=== PATIENT | female | born 1945 ===

== ENCOUNTER 2018-04-02 13:06 | Inpatient (IN) ==
[2018-04-02] MEDS ORDERED: Propofol 1000 mg/100 ml Inj 1,000 MG/100 ML BOTTLE ONE (13:26)
--- NOTE | 2018-04-02 13:44 | XR ---
EXAM DATE: 04/02/2018 1:37 PM EST AGE/SEX: 89 years / Female INDICATIONS: Shortness of breath. CLINICAL DATA: This is the patient's initial encounter. Patient reports that signs and symptoms have been present for 1 day and indicates a pain score of Nonresponsive. MEDICAL/SURGICAL HISTORY: Non-responsive. Non-responsive. COMPARISON: No prior exams available for comparison. FINDINGS: A single AP view of the chest demonstrates minimal bibasilar linear densities without evidence of mas s, infiltrate or effusion. Endotracheal tube approximately 7 cm above the jitendra. The cardiomediasti nal contours are unremarkable. Osseous structures are intact. CONCLUSION: 1. Minimal bibasilar subsegmental atelectasis. 2. Endotracheal tube 7 cm above the jitendra. Electronically signed by: Ralph Montemayor MD 04/02/2018 1:42 PM EST
--- NOTE | 2018-04-02 13:48 | ED ---
HPI General Chief complaint: Respiratory Symptoms Stated complaint: Emergent Time Seen by Provider: 04/02/18 13:11 Source: EMS Mode of arrival: EMS Limitations: other History of Present Illness HPI narrative: Elderly female was brought in by [facility]AC s/p intubation in the field. Pt has COPD and was having difficulty breathing. Pt was from [place] but was adamant in wanting to come here. Wheezing bilaterally and given methylprednisolone and duonebs. They tried CPAP en route but pt was getting more tired so pt was intubated in the field. Unable to obtain any further history. Related Data Home Medications Medication Instructions Recorded Confirmed amiodarone 20 mg/kg PO DAILY 04/02/18 04/02/18 diazepam 5 mg PO BID 04/02/18 04/02/18 diltiazem HCl [Cartia XT] 240 mg PO DAILY 04/02/18 04/02/18 fluoxetine 40 mg PO DAILY 04/02/18 04/02/18 metoprolol tartrate 25 mg PO BID 04/02/18 04/02/18 trazodone 150 mg PO DAILY 04/02/18 04/02/18 Allergies Allergy/AdvReac Type Severity Reaction Status Date / Time No Known Allergies Allergy Verified 04/02/18 13:11 Review of Systems ROS: all other systems reviewed are negative [facility] Medical History Medical History Anxiety (Acute) Asthma (Acute) COPD (chronic obstructive pulmonary disease) (Acute) HBP (high blood pressure) (Acute) History of hysterectomy (Acute) Surgical History Surgical History History of cholecystectomy (Acute) History of hip replacement (Acute) Hx of eye surgery (Acute) Social History Social History Substance History: No History of Abuse Second Hand Smoke Exposure: No Smoking Status: Former smoker Tobacco Type: Cigarettes How Often Do You Have a Drink Containing Alcohol: Never Recent Travel in [facility] within the Last 8 Weeks: No Recent Out of Country Travel within the Last 8 Weeks: No Exam Narrative Exam Narrative: GENERAL: Elderly female sedated with versed and etomidate. SKIN: Focused skin assessment warm/dry. HEAD: Atraumatic. Normocephalic. EYES: Pupils equal and round. No scleral icterus. No injection or drainage. ENT: No nasal bleeding or discharge. Mucous membranes pink and moist. NECK: Trachea midline. No JVD. CARDIOVASCULAR: Regular rate and rhythm. No murmur appreciated. RESPIRATORY: Wheezing bilaterally. GASTROINTESTINAL: Abdomen soft, non-tender, nondistended. Hepatic and splenic margins not palpable. MUSCULOSKELETAL: No obvious deformities. No clubbing. No cyanosis. No edema. NEUROLOGICAL: Sedated but [facility]AC said pt was moving all extremities. Course Initial Documented Vital Signs Temperature 102.1 F H 04/02/18 13:12 Pulse Rate 76 04/02/18 13:12 Respiratory Rate 16 04/02/18 13:12 Blood Pressure 127/80 04/02/18 13:12 Pulse Oximetry 98 04/02/18 13:12 Last Documented Vital Signs Temperature 98.3 F 04/03/18 12:00 Pulse Rate 59 L 04/03/18 13:00 Respiratory Rate 11 L 04/03/18 13:00 Blood Pressure 132/60 04/03/18 13:00 Pulse Oximetry 99 04/03/18 16:07 Critical Care Time Critical Care Time: Yes Total Critical Care Time: 40 Attestation: Aggregate critical care time was 40 minutes. Time to perform other separately billable procedures was not included in the critical care time. My time did not include minutes spent treating any other patients simultaneously or on activities that did not directly contribute to the patient's treatment. The services I provided to this patient were to treat and/or prevent clinically significant deterioration that could result in: cardiovascular collapse or . I provided critical care services requiring my management, as noted below: Chart data review, documentation time, medication orders and management, vital sign assessments/reviewing monitor data, ordering and reviewing lab tests, ordering and interpreting/reviewing x-rays and diagnostic studies, care of the patient and discussion of the patient with the admitting physicians. Medical Decision Making MDM Narrative Medical decision making narrative: Elderly female brought here s/p intubation by [facility] for COPD exacerbation. Pt is febrile here so given acetaminophen rectal. Wheezing bilaterally so given more albuterol neb. Pt is placed on propofol drip for sedation. Labs reviewed, WBC 11.2. H/H low at 8.7/28.0. Lactic acid normal. Troponin negative. BNP mildly elevated at 298. UA negative. CXR showed minimal bibasilar atelectasis. ET tube 7cm above jitendra. Discussed with Dr. Ewing, pt had remote history of PE so requested to order CTA to r/o PE. Accepted to Dr. Ewing's service. Medical Screen Exam Complete: Yes Emergency Medical Condition: Yes Differential Diagnosis Differential Diagnosis: COPD exacerbation vs. pneumonia Lab Data Result diagrams: 04/03/18 05:30 04/03/18 05:30 Lab Results 04/02/18 04/02/18 04/02/18 Range/Units 14:00 14:00 14:00 WBC 11.2 H (4.0-11.0) th/mm3 RBC 3.16 L (4.00-5.30) mil/mm3 Hgb 8.7 L (11.6-15.3) gm/dL Hct 28.0 L (35.0-46.0) % MCV 88.6 (80.0-100.0) fL MCH 27.5 (27.0-34.0) pg MCHC 31.1 L (32.0-36.0) % RDW 19.1 H (11.6-17.2) % Plt Count 250 (150-450) th/mm3 MPV 9.9 (7.0-11.0) fL Prelim Diff (Auto) Neut % (Auto) 79.1 H (16.0-70.0) % Lymph % (Auto) 13.8 (9.0-44.0) % Upton % (Auto) 6.7 (0.0-8.0) % Eos % (Auto) 0.2 (0.0-4.0) % Baso % (Auto) 0.2 (0.0-2.0) % Neut # (Auto) 8.8 H (1.8-7.7) th/mm3 Lymph # (Auto) 1.5 (1.0-4.8) th/mm3 Upton # (Auto) 0.8 (0.0-0.9) th/mm3 Eos # (Auto) 0.0 (0.0-0.4) th/mm3 Baso # (Auto) 0.0 (0.0-0.2) th/mm3 WBC Differential . Seg Neuts % (Manual) (16-70) % Band Neuts % (Manual) (0-6) % Lymphocytes % (Manual) (9-44) % Monocytes % (Manual) (0-8) % Basophils % (Manual) (0-2) % Abs Neuts (Manual) (1.8-7.7) th/mm3 Differential Comment Auto diff final Platelet Estimate (Normal) Platelet Morphology (Normal) Ovalocytes (None) PT 11.2 (9.8-11.6) sec INR 1.1 Ratio APTT 27.1 (23.4-31.7) sec Puncture Site Patient Temperature O2 Saturation (90-100) % ABG pH (7.380-7.420) ABG pCO2 (38-42) mmHg ABG pO2 (61-120) mmHg ABG HCO3 (22-26) mmol/L ABG O2 Content (12.0-20.0) Vol % ABG Base Excess (-2-2) mmol/L ABG Methemoglobin (0-2) % Cooper Test Hemoglobin (12.0-16.0) G/DL Carboxyhemoglobin (0-4) % O2 Delivery Device Vent Setting Inspired O2 % Critical Value Sodium 142 (136-145) meq/L Potassium 4.1 (3.5-5.1) meq/L Chloride 98 (98-107) meq/L Carbon Dioxide 38.2 H (21.0-32.0) meq/L Anion Gap 6 (5-15) meq/L BUN 13 (7-18) mg/dL Creatinine 0.54 (0.50-1.00) mg/dL Estimated GFR Greater than 89 (>89) mL/min POC Glucose (68-110) mg/dl Random Glucose 160 H (74-106) mg/dL Lactic Acid (0.4-2.0) mmol/L Calcium 8.3 L (8.5-10.1) mg/dL Phosphorus (2.5-4.9) mg/dL Magnesium 2.1 (1.5-2.5) mg/dL Total Bilirubin 0.3 (0.2-1.0) mg/dL AST 22 (15-37) U/L ALT 25 (10-53) U/L Alkaline Phosphatase 103 (45-117) U/L Troponin I Less than 0.02 L (0.02-0.05) ng/mL B-Natriuretic Peptide (0-100) pg/mL Total Protein 7.0 (6.4-8.2) g/dL Albumin 3.1 L (3.4-5.0) g/dL Urine Color (Yellw/Straw) Urine Clarity (Clear) Urine pH (5.0-8.5) Ur Specific Hendricks (1.002-1.035) Urine Protein (Neg-Trace) mg/dL Urine Glucose (UA) (Negative) mg/dL Urine Ketones (Negative) mg/dL Urine Occult Blood (Negative) Urine Nitrate (Negative) Urine Bilirubin (Negative) Urine Urobilinogen (Less than 2) mg/dL Ur Leukocyte Esterase (Negative) Urine RBC (0-3) /hpf Urine WBC (0-5) /hpf Urine Bacteria (None) /hpf Hyaline Casts (0-3) /lpf Urine Mucus (Occasional) /lpf Micro UA Comment Ur Microscopic Review Urine Culture Comments Nasal Screen MRSA (PCR) (Negative) 04/02/18 04/02/18 04/02/18 Range/Units 14:00 14:00 14:04 WBC (4.0-11.0) th/mm3 RBC (4.00-5.30) mil/mm3 Hgb (11.6-15.3) gm/dL Hct (35.0-46.0) % MCV (80.0-100.0) fL MCH (27.0-34.0) pg MCHC (32.0-36.0) % RDW (11.6-17.2) % Plt Count (150-450) th/mm3 MPV (7.0-11.0) fL Prelim Diff (Auto) Neut % (Auto) (16.0-70.0) % Lymph % (Auto) (9.0-44.0) % Upton % (Auto) (0.0-8.0) % Eos % (Auto) (0.0-4.0) % Baso % (Auto) (0.0-2.0) % Neut # (Auto) (1.8-7.7) th/mm3 Lymph # (Auto) (1.0-4.8) th/mm3 Upton # (Auto) (0.0-0.9) th/mm3 Eos # (Auto) (0.0-0.4) th/mm3 Baso # (Auto) (0.0-0.2) th/mm3 WBC Differential Seg Neuts % (Manual) (16-70) % Band Neuts % (Manual) (0-6) % Lymphocytes % (Manual) (9-44) % Monocytes % (Manual) (0-8) % Basophils % (Manual) (0-2) % Abs Neuts (Manual) (1.8-7.7) th/mm3 Differential Comment Platelet Estimate (Normal) Platelet Morphology (Normal) Ovalocytes (None) PT (9.8-11.6) sec INR Ratio APTT (23.4-31.7) sec Puncture Site Right radial Patient Temperature 98.6 O2 Saturation 97 (90-100) % ABG pH 7.35 L (7.380-7.420) ABG pCO2 68 H* (38-42) mmHg ABG pO2 196 H (61-120) mmHg ABG HCO3 36 H (22-26) mmol/L ABG O2 Content 12.0 (12.0-20.0) Vol % ABG Base Excess 10.2 H (-2-2) mmol/L ABG Methemoglobin 0.8 (0-2) % Cooper Test Present Hemoglobin 8.4 L (12.0-16.0) G/DL Carboxyhemoglobin 1.3 (0-4) % O2 Delivery Device Ventilator Vent Setting Inspired O2 80 % Critical Value Yes Sodium (136-145) meq/L Potassium (3.5-5.1) meq/L Chloride (98-107) meq/L Carbon Dioxide (21.0-32.0) meq/L Anion Gap (5-15) meq/L BUN (7-18) mg/dL Creatinine (0.50-1.00) mg/dL Estimated GFR (>89) mL/min POC Glucose (68-110) mg/dl Random Glucose (74-106) mg/dL Lactic Acid 1.2 (0.4-2.0) mmol/L Calcium (8.5-10.1) mg/dL Phosphorus (2.5-4.9) mg/dL Magnesium (1.5-2.5) mg/dL Total Bilirubin (0.2-1.0) mg/dL AST (15-37) U/L ALT (10-53) U/L Alkaline Phosphatase (45-117) U/L Troponin I (0.02-0.05) ng/mL B-Natriuretic Peptide 298 H (0-100) pg/mL Total Protein (6.4-8.2) g/dL Albumin (3.4-5.0) g/dL Urine Color (Yellw/Straw) Urine Clarity (Clear) Urine pH (5.0-8.5) Ur Specific Hendricks (1.002-1.035) Urine Protein (Neg-Trace) mg/dL Urine Glucose (UA) (Negative) mg/dL Urine Ketones (Negative) mg/dL Urine Occult Blood (Negative) Urine Nitrate (Negative) Urine Bilirubin (Negative) Urine Urobilinogen (Less than 2) mg/dL Ur Leukocyte Esterase (Negative) Urine RBC (0-3) /hpf Urine WBC (0-5) /hpf Urine Bacteria (None) /hpf Hyaline Casts (0-3) /lpf Urine Mucus (Occasional) /lpf Micro UA Comment Ur Microscopic Review Urine Culture Comments Nasal Screen MRSA (PCR) (Negative) 04/02/18 04/02/18 04/02/18 Range/Units 14:20 16:03 17:10 WBC (4.0-11.0) th/mm3 RBC (4.00-5.30) mil/mm3 Hgb (11.6-15.3) gm/dL Hct (35.0-46.0) % MCV (80.0-100.0) fL MCH (27.0-34.0) pg MCHC (32.0-36.0) % RDW (11.6-17.2) % Plt Count (150-450) th/mm3 MPV (7.0-11.0) fL Prelim Diff (Auto) Neut % (Auto) (16.0-70.0) % Lymph % (Auto) (9.0-44.0) % Upton % (Auto) (0.0-8.0) % Eos % (Auto) (0.0-4.0) % Baso % (Auto) (0.0-2.0) % Neut # (Auto) (1.8-7.7) th/mm3 Lymph # (Auto) (1.0-4.8) th/mm3 Upton # (Auto) (0.0-0.9) th/mm3 Eos # (Auto) (0.0-0.4) th/mm3 Baso # (Auto) (0.0-0.2) th/mm3 WBC Differential Seg Neuts % (Manual) (16-70) % Band Neuts % (Manual) (0-6) % Lymphocytes % (Manual) (9-44) % Monocytes % (Manual) (0-8) % Basophils % (Manual) (0-2) % Abs Neuts (Manual) (1.8-7.7) th/mm3 Differential Comment Platelet Estimate (Normal) Platelet Morphology (Normal) Ovalocytes (None) PT (9.8-11.6) sec INR Ratio APTT (23.4-31.7) sec Puncture Site Patient Temperature O2 Saturation (90-100) % ABG pH (7.380-7.420) ABG pCO2 (38-42) mmHg ABG pO2 (61-120) mmHg ABG HCO3 (22-26) mmol/L ABG O2 Content (12.0-20.0) Vol % ABG Base Excess (-2-2) mmol/L ABG Methemoglobin (0-2) % Cooper Test Hemoglobin (12.0-16.0) G/DL Carboxyhemoglobin (0-4) % O2 Delivery Device Vent Setting Inspired O2 % Critical Value Sodium (136-145) meq/L Potassium (3.5-5.1) meq/L Chloride (98-107) meq/L Carbon Dioxide (21.0-32.0) meq/L Anion Gap (5-15) meq/L BUN (7-18) mg/dL Creatinine (0.50-1.00) mg/dL Estimated GFR (>89) mL/min POC Glucose 176 H (68-110) mg/dl Random Glucose (74-106) mg/dL Lactic Acid (0.4-2.0) mmol/L Calcium (8.5-10.1) mg/dL Phosphorus (2.5-4.9) mg/dL Magnesium (1.5-2.5) mg/dL Total Bilirubin (0.2-1.0) mg/dL AST (15-37) U/L ALT (10-53) U/L Alkaline Phosphatase (45-117) U/L Troponin I (0.02-0.05) ng/mL B-Natriuretic Peptide (0-100) pg/mL Total Protein (6.4-8.2) g/dL Albumin (3.4-5.0) g/dL Urine Color Yellow (Yellw/Straw) Urine Clarity Hazy H (Clear) Urine pH 6.0 (5.0-8.5) Ur Specific Hendricks 1.019 (1.002-1.035) Urine Protein 100 H (Neg-Trace) mg/dL Urine Glucose (UA) Negative (Negative) mg/dL Urine Ketones 20 (Negative) mg/dL Urine Occult Blood Negative (Negative) Urine Nitrate Negative (Negative) Urine Bilirubin Negative (Negative) Urine Urobilinogen Less than 2 (Less than 2) mg/dL Ur Leukocyte Esterase Negative (Negative) Urine RBC 3 (0-3) /hpf Urine WBC 1 (0-5) /hpf Urine Bacteria Rare H (None) /hpf Hyaline Casts 3 (0-3) /lpf Urine Mucus Few H (Occasional) /lpf Micro UA Comment Culture not ind Ur Microscopic Review Not Reportable Urine Culture Comments Culture not ind Nasal Screen MRSA (PCR) Not detected (Negative) 04/02/18 04/02/18 04/03/18 Range/Units 20:11 23:43 03:49 WBC (4.0-11.0) th/mm3 RBC (4.00-5.30) mil/mm3 Hgb (11.6-15.3) gm/dL Hct (35.0-46.0) % MCV (80.0-100.0) fL MCH (27.0-34.0) pg MCHC (32.0-36.0) % RDW (11.6-17.2) % Plt Count (150-450) th/mm3 MPV (7.0-11.0) fL Prelim Diff (Auto) Neut % (Auto) (16.0-70.0) % Lymph % (Auto) (9.0-44.0) % Upton % (Auto) (0.0-8.0) % Eos % (Auto) (0.0-4.0) % Baso % (Auto) (0.0-2.0) % Neut # (Auto) (1.8-7.7) th/mm3 Lymph # (Auto) (1.0-4.8) th/mm3 Upton # (Auto) (0.0-0.9) th/mm3 Eos # (Auto) (0.0-0.4) th/mm3 Baso # (Auto) (0.0-0.2) th/mm3 WBC Differential Seg Neuts % (Manual) (16-70) % Band Neuts % (Manual) (0-6) % Lymphocytes % (Manual) (9-44) % Monocytes % (Manual) (0-8) % Basophils % (Manual) (0-2) % Abs Neuts (Manual) (1.8-7.7) th/mm3 Differential Comment Platelet Estimate (Normal) Platelet Morphology (Normal) Ovalocytes (None) PT (9.8-11.6) sec INR Ratio APTT (23.4-31.7) sec Puncture Site Patient Temperature O2 Saturation (90-100) % ABG pH (7.380-7.420) ABG pCO2 (38-42) mmHg ABG pO2 (61-120) mmHg ABG HCO3 (22-26) mmol/L ABG O2 Content (12.0-20.0) Vol % ABG Base Excess (-2-2) mmol/L ABG Methemoglobin (0-2) % Cooper Test Hemoglobin (12.0-16.0) G/DL Carboxyhemoglobin (0-4) % O2 Delivery Device Vent Setting Inspired O2 % Critical Value Sodium (136-145) meq/L Potassium (3.5-5.1) meq/L Chloride (98-107) meq/L Carbon Dioxide (21.0-32.0) meq/L Anion Gap (5-15) meq/L BUN (7-18) mg/dL Creatinine (0.50-1.00) mg/dL Estimated GFR (>89) mL/min POC Glucose 170 H 162 H 121 H (68-110) mg/dl Random Glucose (74-106) mg/dL Lactic Acid (0.4-2.0) mmol/L Calcium (8.5-10.1) mg/dL Phosphorus (2.5-4.9) mg/dL Magnesium (1.5-2.5) mg/dL Total Bilirubin (0.2-1.0) mg/dL AST (15-37) U/L ALT (10-53) U/L Alkaline Phosphatase (45-117) U/L Troponin I (0.02-0.05) ng/mL B-Natriuretic Peptide (0-100) pg/mL Total Protein (6.4-8.2) g/dL Albumin (3.4-5.0) g/dL Urine Color (Yellw/Straw) Urine Clarity (Clear) Urine pH (5.0-8.5) Ur Specific Hendricks (1.002-1.035) Urine Protein (Neg-Trace) mg/dL Urine Glucose (UA) (Negative) mg/dL Urine Ketones (Negative) mg/dL Urine Occult Blood (Negative) Urine Nitrate (Negative) Urine Bilirubin (Negative) Urine Urobilinogen (Less than 2) mg/dL Ur Leukocyte Esterase (Negative) Urine RBC (0-3) /hpf Urine WBC (0-5) /hpf Urine Bacteria (None) /hpf Hyaline Casts (0-3) /lpf Urine Mucus (Occasional) /lpf Micro UA Comment Ur Microscopic Review Urine Culture Comments Nasal Screen MRSA (PCR) (Negative) 04/03/18 04/03/18 04/03/18 Range/Units 05:30 05:30 07:15 WBC 7.2 (4.0-11.0) th/mm3 RBC 2.87 L (4.00-5.30) mil/mm3 Hgb 8.0 L (11.6-15.3) gm/dL Hct 24.7 L (35.0-46.0) % MCV 86.2 (80.0-100.0) fL MCH 27.8 (27.0-34.0) pg MCHC 32.2 (32.0-36.0) % RDW 17.5 H (11.6-17.2) % Plt Count 192 (150-450) th/mm3 MPV 10.8 (7.0-11.0) fL Prelim Diff (Auto) Slide review pending Neut % (Auto) 76.8 H (16.0-70.0) % Lymph % (Auto) 18.5 (9.0-44.0) % Upton % (Auto) 4.5 (0.0-8.0) % Eos % (Auto) 0.0 (0.0-4.0) % Baso % (Auto) 0.2 (0.0-2.0) % Neut # (Auto) 5.6 (1.8-7.7) th/mm3 Lymph # (Auto) 1.3 (1.0-4.8) th/mm3 Upton # (Auto) 0.3 (0.0-0.9) th/mm3 Eos # (Auto) 0.0 (0.0-0.4) th/mm3 Baso # (Auto) 0.0 (0.0-0.2) th/mm3 WBC Differential Manual diff final Seg Neuts % (Manual) 50 (16-70) % Band Neuts % (Manual) 25 H (0-6) % Lymphocytes % (Manual) 20 (9-44) % Monocytes % (Manual) 4 (0-8) % Basophils % (Manual) 1 (0-2) % Abs Neuts (Manual) 5.4 (1.8-7.7) th/mm3 Differential Comment . Platelet Estimate Normal (Normal) Platelet Morphology Normal (Normal) Ovalocytes 1+ H (None) PT (9.8-11.6) sec INR Ratio APTT (23.4-31.7) sec Puncture Site Patient Temperature O2 Saturation (90-100) % ABG pH (7.380-7.420) ABG pCO2 (38-42) mmHg ABG pO2 (61-120) mmHg ABG HCO3 (22-26) mmol/L ABG O2 Content (12.0-20.0) Vol % ABG Base Excess (-2-2) mmol/L ABG Methemoglobin (0-2) % Cooper Test Hemoglobin (12.0-16.0) G/DL Carboxyhemoglobin (0-4) % O2 Delivery Device Vent Setting Inspired O2 % Critical Value Sodium 140 (136-145) meq/L Potassium 3.3 L D (3.5-5.1) meq/L Chloride 104 (98-107) meq/L Carbon Dioxide 28.7 D (21.0-32.0) meq/L Anion Gap 7 (5-15) meq/L BUN 12 (7-18) mg/dL Creatinine 0.52 (0.50-1.00) mg/dL Estimated GFR Greater than 89 (>89) mL/min POC Glucose 134 H (68-110) mg/dl Random Glucose 123 H (74-106) mg/dL Lactic Acid (0.4-2.0) mmol/L Calcium 8.0 L (8.5-10.1) mg/dL Phosphorus 2.6 (2.5-4.9) mg/dL Magnesium 2.1 (1.5-2.5) mg/dL Total Bilirubin 0.2 (0.2-1.0) mg/dL AST 19 (15-37) U/L ALT 23 (10-53) U/L Alkaline Phosphatase 94 (45-117) U/L Troponin I (0.02-0.05) ng/mL B-Natriuretic Peptide (0-100) pg/mL Total Protein 6.2 L D (6.4-8.2) g/dL Albumin 2.6 L (3.4-5.0) g/dL Urine Color (Yellw/Straw) Urine Clarity (Clear) Urine pH (5.0-8.5) Ur Specific Hendricks (1.002-1.035) Urine Protein (Neg-Trace) mg/dL Urine Glucose (UA) (Negative) mg/dL Urine Ketones (Negative) mg/dL Urine Occult Blood (Negative) Urine Nitrate (Negative) Urine Bilirubin (Negative) Urine Urobilinogen (Less than 2) mg/dL Ur Leukocyte Esterase (Negative) Urine RBC (0-3) /hpf Urine WBC (0-5) /hpf Urine Bacteria (None) /hpf Hyaline Casts (0-3) /lpf Urine Mucus (Occasional) /lpf Micro UA Comment Ur Microscopic Review Urine Culture Comments Nasal Screen MRSA (PCR) (Negative) 04/03/18 04/03/18 Range/Units 12:04 14:28 WBC (4.0-11.0) th/mm3 RBC (4.00-5.30) mil/mm3 Hgb (11.6-15.3) gm/dL Hct (35.0-46.0) % MCV (80.0-100.0) fL MCH (27.0-34.0) pg MCHC (32.0-36.0) % RDW (11.6-17.2) % Plt Count (150-450) th/mm3 MPV (7.0-11.0) fL Prelim Diff (Auto) Neut % (Auto) (16.0-70.0) % Lymph % (Auto) (9.0-44.0) % Upton % (Auto) (0.0-8.0) % Eos % (Auto) (0.0-4.0) % Baso % (Auto) (0.0-2.0) % Neut # (Auto) (1.8-7.7) th/mm3 Lymph # (Auto) (1.0-4.8) th/mm3 Upton # (Auto) (0.0-0.9) th/mm3 Eos # (Auto) (0.0-0.4) th/mm3 Baso # (Auto) (0.0-0.2) th/mm3 WBC Differential Seg Neuts % (Manual) (16-70) % Band Neuts % (Manual) (0-6) % Lymphocytes % (Manual) (9-44) % Monocytes % (Manual) (0-8) % Basophils % (Manual) (0-2) % Abs Neuts (Manual) (1.8-7.7) th/mm3 Differential Comment Platelet Estimate (Normal) Platelet Morphology (Normal) Ovalocytes (None) PT (9.8-11.6) sec INR Ratio APTT (23.4-31.7) sec Puncture Site Left radial Patient Temperature 98.6 O2 Saturation 95 (90-100) % ABG pH 7.35 L (7.380-7.420) ABG pCO2 50 H (38-42) mmHg ABG pO2 98 (61-120) mmHg ABG HCO3 27 H (22-26) mmol/L ABG O2 Content 10.8 L (12.0-20.0) Vol % ABG Base Excess 2.1 H (-2-2) mmol/L ABG Methemoglobin 1.8 (0-2) % Cooper Test Present Hemoglobin 8.0 L (12.0-16.0) G/DL Carboxyhemoglobin 0.9 (0-4) % O2 Delivery Device Ventilator Vent Setting [id number] Inspired O2 35 % Critical Value No Sodium (136-145) meq/L Potassium (3.5-5.1) meq/L Chloride (98-107) meq/L Carbon Dioxide (21.0-32.0) meq/L Anion Gap (5-15) meq/L BUN (7-18) mg/dL Creatinine (0.50-1.00) mg/dL Estimated GFR (>89) mL/min POC Glucose 125 H (68-110) mg/dl Random Glucose (74-106) mg/dL Lactic Acid (0.4-2.0) mmol/L Calcium (8.5-10.1) mg/dL Phosphorus (2.5-4.9) mg/dL Magnesium (1.5-2.5) mg/dL Total Bilirubin (0.2-1.0) mg/dL AST (15-37) U/L ALT (10-53) U/L Alkaline Phosphatase (45-117) U/L Troponin I (0.02-0.05) ng/mL B-Natriuretic Peptide (0-100) pg/mL Total Protein (6.4-8.2) g/dL Albumin (3.4-5.0) g/dL Urine Color (Yellw/Straw) Urine Clarity (Clear) Urine pH (5.0-8.5) Ur Specific Hendricks (1.002-1.035) Urine Protein (Neg-Trace) mg/dL Urine Glucose (UA) (Negative) mg/dL Urine Ketones (Negative) mg/dL Urine Occult Blood (Negative) Urine Nitrate (Negative) Urine Bilirubin (Negative) Urine Urobilinogen (Less than 2) mg/dL Ur Leukocyte Esterase (Negative) Urine RBC (0-3) /hpf Urine WBC (0-5) /hpf Urine Bacteria (None) /hpf Hyaline Casts (0-3) /lpf Urine Mucus (Occasional) /lpf Micro UA Comment Ur Microscopic Review Urine Culture Comments Nasal Screen MRSA (PCR) (Negative) Imaging Data Radiologist's impression: Chest X-Ray 04/02/18 13:12 CONCLUSION: 1. Minimal bibasilar subsegmental atelectasis. 2. Endotracheal tube 7 cm above the jitendra. Chest CTA 04/02/18 14:53 CONCLUSION: 1. No evidence of pulmonary embolism. 2. Basilar airway disease especially on the right with associated peribronchial opacity and subsegmental pleural-based airspace disease which may be inflammatory. 3. No evidence of suspicious mass or lymphadenopathy. 4. Endotracheal and nasogastric tubes appear to be in good position. ECG Data EKG Prior to Arrival: No Attestation: I personally reviewed and interpreted this ECG as follows: Interpretation: NSR 74bpm. Normal axis. No significant ST elevation or depression. Discharge Plan Discharge Disposition Patient Disposition: 30 Still Patient Discharge Details Diagnosis: Acute hypoxemic respiratory failure Physicians Team ED Provider: Nancy Mobley Primary Care Provider: UNKNOWN, Attending Provider: Estephanie Ewing Status ED Status: Left Department Discharge Information Discharge Date/Time: 04/02/18 16:30
[2018-04-02] MEDS ORDERED: Acetaminophen 650 MG Supp RECTAL ONE (13:52)
[2018-04-02 14:12] LABS: ABG Base Excess 10.2 mmol/L (-2-2); ABG PCO2 68 mmHg (38-42); ABG PO2 196 mmHg (61-120)
[2018-04-02] MEDS: Propofol 1000 mg/100 ml Inj 1,000 MG/100 ML BOTTLE IV.CONT PRN ×2 (14:12→18:32)
[2018-04-02 14:27] LABS: Baso % (Auto) 0.2 % (0.0-2.0); Eos % (Auto) 0.2 % (0.0-4.0); Hemoglobin 8.7 gm/dL (11.6-15.3); Lymph # (Auto) 1.5 th/mm3 (1.0-4.8); Lymph % (Auto) 13.8 % (9.0-44.0); Mean Corpuscular HGB Conc 31.1 % (32.0-36.0); Mean Corpuscular Hemoglobin 27.5 pg (27.0-34.0); Mean Corpuscular Volume 88.6 fL (80.0-100.0); Mean Platelet Volume 9.9 fL (7.0-11.0); Mono # (Auto) 0.8 th/mm3 (0.0-0.9); Mono % (Auto) 6.7 % (0.0-8.0); Neut # (Auto) 8.8 th/mm3 (1.8-7.7); Neut % (Auto) 79.1 % (16.0-70.0); Platelet Count 250 th/mm3 (150-450); Red Blood Count 3.16 mil/mm3 (4.00-5.30); Red Cell Distribution Width 19.1 % (11.6-17.2); White Blood Count 11.2 th/mm3 (4.0-11.0)
[2018-04-02] MEDS ORDERED: Bisacodyl 10 MG Supp RECTAL PRN (14:41)
[2018-04-02] MEDS ORDERED: Dextrose 50% in Water 50 ML Vial IV.PUSH PRN (14:43)
[2018-04-02 14:46] LABS: Alanine Aminotransferase 25 U/L (10-53); Albumin 3.1 g/dL (3.4-5.0); Anion Gap 6 meq/L (5-15); Aspartate Aminotransferase 22 U/L (15-37); Blood Urea Nitrogen 13 mg/dL (7-18); Calcium 8.3 mg/dL (8.5-10.1); Carbon Dioxide 38.2 meq/L (21.0-32.0); Chloride 98 meq/L (98-107); Glomerular Filtration Rate Greater Than 89 mL/min (>89); Glucose,Random 160 mg/dL (74-106); Magnesium 2.1 mg/dL (1.5-2.5); Potassium 4.1 meq/L (3.5-5.1); Sodium 142 meq/L (136-145)
[2018-04-02 14:50] LABS: Alkaline Phosphatase 103 U/L (45-117)
[2018-04-02] MEDS ORDERED: Azithromycin Inj 500 MG in Sodium Chlor 0.9% Inj 250 ML IV.SIG SCH (15:00)
[2018-04-02] MEDS: MethylPREDNISolone Sod Succinate Inj 40 MG/ML Vial IV.PUSH SCH ×2 (15:01→21:24)
[2018-04-02] MEDS: Pantoprazole Inj 40 MG Vial IV.PUSH SCH (15:02)
--- NOTE | 2018-04-02 15:27 | MH ---
cc: Estephanie Ewing MD DATE OF ADMISSION: 04/02/2018 CRITICAL CARE ADMISSION HISTORY OF PRESENT ILLNESS: Elderly female with a past medical history of COPD on 3 liters home oxygen continuously, bronchial asthma being followed by Dr. Magallon in [place], history of hypertension, paroxysmal atrial fibrillation and questionable PE 30 years ago per daughter. She presented to [facility] ED via [facility] for respiratory distress, status post intubation in the field. According to the daughter, the patient reported progressive worsening shortness of breath for the past 3 days associated with coughing and wheezing. She was given a Z-Nilo 1 week ago for a sinus infection by her PMD. She denies any prior history of intubation. On arrival to the ED, she had a fever with temperature of 102.1. She was placed on Diprivan infusion for sedation, and ABG post-intubation showed acute on chronic hypercapnic respiratory acidosis with a pH of 7.35, CO2 68, PaO2 196, bicarbonate 36, saturation of 97%. Chest x-ray showed minimal bibasilar atelectasis. She was noted to have a white count of 11.2 and lactic acid of 1.2. Her CMP is still pending. PAST MEDICAL HISTORY: Significant for COPD, paroxysmal atrial fibrillation, bronchial asthma, history of PE 30 years ago. PAST SURGICAL HISTORY: Previous cholecystectomy, previous hysterectomy, previous hip replacement. SOCIAL HISTORY: Quit smoking 2 years ago, used to smoke approximately 10 cigarettes per day for 40 years. She is a nondrinker. ALLERGIES: NO KNOWN DRUG ALLERGIES. REPORTED MEDICATIONS AT HOME: Include: 1. Trazodone 2. Lopressor. 3. Fluoxetine. 4. Diltiazem. 5. Diazepam. 6. Amiodarone. FAMILY HISTORY: Noncontributing to present illness. REVIEW OF SYSTEMS: As per HPI, rest of review of systems limited. PHYSICAL EXAMINATION: GENERAL: Elderly female, intubated for respiratory failure. VITAL SIGNS: Temperature of 102.1, pulse of 75, respiratory rate 16, blood pressure 134/60, saturation of 94%. Vent settings PRVC rate of 16, tidal volume 500, I-time 1.0, PEEP of 5, FiO2 currently at 40%. HEENT: Atraumatic, normocephalic. Pupils are equal, round, active; extraocular muscles intact. Conjunctivae pink. Nonicteric sclerae. Oral mucosa within normal. NECK: Supple. No JVD, adenopathy, or thyromegaly. Trachea midline. CARDIOVASCULAR: Regular rate and rhythm. Normal S1, S2. No murmurs, rubs or gallops noted. PULMONARY: Bilateral equal air entry with a few scattered wheezing. ABDOMEN: Soft, nontender, nondistended, positive bowel sounds. EXTREMITIES: No cyanosis, clubbing, edema. NEUROLOGIC: Intubated and on Diprivan infusion for sedation. LABORATORY DATA: WBC 11.2, hemoglobin 8.7, hematocrit 28, platelet count of 250. Sodium 142, potassium 4.1, chloride 98, CO2 38, BUN 13, creatinine 0.54, glucose 160. Lactic acid 1.2. Troponin less than 0.02. RADIOGRAPHIC STUDIES: Chest x-ray showed minimal bibasilar subsegmental atelectasis. ASSESSMENT AND PLAN: 1. Acute hypoxemic and hypercapnic respiratory failure. 2. Chronic obstructive pulmonary disease exacerbation. 3. Hypertension. 4. History of paroxysmal atrial fibrillation. 5. Remote history of pulmonary embolism, per daughter. RECOMMENDATIONS: 1. Continue with Diprivan infusion for sedation and daily sedation vacation when indicated. 2. Continue with vent support and maintain sats above 92%. 3. Place on bronchodilators in the form of DuoNeb every 4 hours plus every 2 hours p.r.n. for shortness of breath and start Solu-Medrol 60 mg IV every 8 hours. 4. Increase respiratory rate to 18; we will give Diamox 250 mg IV x1 for elevated bicarbonate. 5. Given her respiratory distress and prior history of pulmonary embolism, we will proceed with CT angiogram of the chest to rule out pulmonary embolism. 6. Monitor heart rate and blood pressure closely and maintain MAP greater than 65 mmHg. Lactic acid measured at 1.2. 7. Monitor renal function, I's and O's and electrolyte replacement per protocol. Place on IV fluids at 75 mL an hour. 8. Keep n.p.o. and place on Protonix 40 mg IV daily for gastrointestinal prophylaxis. Start nutrition support within 24 hours if remains intubated. 9. Start antibiotics, Rocephin and Zithromax and monitor for signs of infection which include fever and WBC. Followup on blood cultures, check a sputum culture and I will obtain urinalysis with culture if indicated. 10. Place on sliding scale insulin with Accu-Cheks for glycemic control. 11. Gastrointestinal prophylaxis with Protonix 40 mg daily and deep venous thrombosis prophylaxis with sequential compression devices and heparin subcutaneous. MD BRAYAN Mathews/tiara , 02:56 PM , 03:11 PM
[2018-04-02 15:35] LABS: Activated Partial Thrombo Time 27.1 sec (23.4-31.7); INR 1.1 Ratio; Prothrombin Time 11.2 sec (9.8-11.6)
[2018-04-02 15:39] LABS: Bacteria,Urine Rare /hpf; Bilirubin,Urine Negative (Negative); Clarity,Urine Hazy (Clear); Color,Urine Yellow (Yellw/Straw); Glucose,Urine (UA) Negative (Negative); Hyaline Casts,Urine 3 /lpf (0-3); Leukocyte Esterase,Urine Negative (Negative); Mucus,Urine Few /lpf (Occasional); Nitrite,Urine Negative (Negative); Specific Gravity,Urine 1.019 (1.002-1.035)
[2018-04-02] MEDS: Azithromycin Inj 500 MG in Sodium Chlor 0.9% Inj 250 ML IV.SIG SCH (15:57)
[2018-04-02] MEDS: Sod Chloride 0.9% Inj 1,000 ML IV.CONT SCH (16:00)
--- NOTE | 2018-04-02 16:47 | CT ---
EXAM DATE: 04/02/2018 4:36 PM EST AGE/SEX: 89 years / Female INDICATIONS: Respiratory distress. CLINICAL DATA: This is the patient's initial encounter. Patient reports that signs and symptoms have been present for 1 day and indicates a pain score of 7/10. MEDICAL/SURGICAL HISTORY: Asthma. Chronic obstructive pulmonary disease. Hysterectomy. RADIATION DOSE: 15.24 CTDI (mGy) COMPARISON: No prior exams available for comparison. TECHNIQUE: Volumetric scanning was performed using a multi-row detector CT scanner during bolus infu andrea of 60 ml Omnipaque 350 (iohexol) nonionic water-soluble contrast as a single exam dose. The deejay a was post processed with a variety of visualization algorithms including full volume maximum intensi ty projection and sliding thin slab reformation. Using automated exposure control and adjustment of t he mA and/or kV according to patient size, radiation dose was kept as low as reasonably achievable to obtain optimal diagnostic quality images. DICOM format image data is available electronically for r eview and comparison. FINDINGS: Pulmonary Arteries: No filling defects are seen in the pulmonary arteries out to the subsegmental ve ssels. The left and right pulmonary arteries are normal in diameter. Lung: Lungs are hyperinflated. Chronic interstitial changes are noted. Airway disease with bronchial wall thickening and subsegmental airspace disease is identified in the right lower lobe. No other si gnificant lung abnormalities are noted. Effusion: None. Mediastinum: No evidence of mediastinal or hilar adenopathy. Other: The axilla is unremarkable. CONCLUSION: 1. No evidence of pulmonary embolism. 2. Basilar airway disease especially on the right with associated peribronchial opacity and subsegme ntal pleural-based airspace disease which may be inflammatory. 3. No evidence of suspicious mass or lymphadenopathy. 4. Endotracheal and nasogastric tubes appear to be in good position. Electronically signed by: Sanju Marti MD 04/02/2018 4:46 PM EST
[2018-04-02] MEDS ORDERED: fentaNYL 10 mcg/mL Premix Drip 2,500 MCG/250 ML BAG IV.SIG PRN (17:10)
[2018-04-02] MEDS: Insulin NovoLIN Regular Correctional Sugar Inj SQ SCH ×3 (19:39→23:54)
[2018-04-02] MEDS: Heparin - SQ 10,000 UNITS/ML Vial SQ SCH (20:24)
[2018-04-02] MEDS ORDERED: Famotidine PF Inj 20 MG/2 ML Vial IV.PUSH SCH (21:00)
[2018-04-02] MEDS ORDERED: Famotidine 20 MG Tablet PO SCH (21:00)
[2018-04-03] MEDS: Propofol 1000 mg/100 ml Inj 1,000 MG/100 ML BOTTLE IV.CONT PRN (00:38)
[2018-04-03] MEDS: Insulin NovoLIN Regular Correctional Sugar Inj SQ SCH ×6 (03:52→23:51)
[2018-04-03] MEDS: Chlorhexidine Gluconate 2% 1 Pack (2 Cloths) TOPICAL SCH (03:52)
[2018-04-03] MEDS ORDERED: Chlorhexidine Gluconate 2% 1 Pack (2 Cloths) TOPICAL PRN (04:00)
[2018-04-03] MEDS: Sod Chloride 0.9% Inj 1,000 ML IV.CONT SCH ×2 (05:19→19:22)
[2018-04-03] MEDS: MethylPREDNISolone Sod Succinate Inj 40 MG/ML Vial IV.PUSH SCH ×3 (05:20→21:43)
[2018-04-03 06:12] LABS: Baso % (Auto) 0.2 % (0.0-2.0); Hematocrit 24.7 % (35.0-46.0); Lymph # (Auto) 1.3 th/mm3 (1.0-4.8); Lymph % (Auto) 18.5 % (9.0-44.0); Mean Corpuscular HGB Conc 32.2 % (32.0-36.0); Mean Corpuscular Hemoglobin 27.8 pg (27.0-34.0); Mean Corpuscular Volume 86.2 fL (80.0-100.0); Mean Platelet Volume 10.8 fL (7.0-11.0); Mono # (Auto) 0.3 th/mm3 (0.0-0.9); Mono % (Auto) 4.5 % (0.0-8.0); Neut # (Auto) 5.6 th/mm3 (1.8-7.7); Neut % (Auto) 76.8 % (16.0-70.0); Platelet Count 192 th/mm3 (150-450); Red Blood Count 2.87 mil/mm3 (4.00-5.30); Red Cell Distribution Width 17.5 % (11.6-17.2); White Blood Count 7.2 th/mm3 (4.0-11.0)
[2018-04-03 06:19] LABS: Alanine Aminotransferase 23 U/L (10-53); Albumin 2.6 g/dL (3.4-5.0); Anion Gap 7 meq/L (5-15); Aspartate Aminotransferase 19 U/L (15-37); Blood Urea Nitrogen 12 mg/dL (7-18); Carbon Dioxide 28.7 meq/L (21.0-32.0); Chloride 104 meq/L (98-107); Glomerular Filtration Rate Greater Than 89 mL/min (>89); Glucose,Random 123 mg/dL (74-106); Magnesium 2.1 mg/dL (1.5-2.5); Potassium 3.3 meq/L (3.5-5.1); Sodium 140 meq/L (136-145)
[2018-04-03 06:22] LABS: Alkaline Phosphatase 94 U/L (45-117); Phosphorus 2.6 mg/dL (2.5-4.9); Total Protein 6.2 g/dL (6.4-8.2)
[2018-04-03] MEDS ORDERED: Potassium Phosphate Inj 30 MMOL in Sodium Chlor 0.9% Inj 250 ML IV.SIG PRN (07:28)
[2018-04-03] MEDS ORDERED: Potassium Chlor 40 mEq Premix 40 MEQ/100 ML PIGGYBACK IV.SIG PRN ×2 (07:28)
[2018-04-03] MEDS ORDERED: Potassium Chloride 25 MEQ Effervescent Tablet PO PRN (07:28)
[2018-04-03] MEDS ORDERED: Sodium Phosphate Inj 30 MMOL in Sodium Chlor 0.9% Inj 250 ML IV.SIG PRN (07:28)
[2018-04-03] MEDS ORDERED: Potassium Chlor 20 mEq Premix 20 MEQ/100 ML PIGGYBACK IV.SIG PRN (07:28)
[2018-04-03] MEDS ORDERED: Magnesium Sulfate Inj 2 GM in Sodium Chlor 0.9% Inj 96 ML IV.SIG PRN (07:28)
[2018-04-03] MEDS ORDERED: Potassium Phosphate 500 MG Soluble Tablet PO PRN ×2 (07:28)
[2018-04-03] MEDS ORDERED: Magnesium Sulfate Inj 4 GM in Sodium Chlor 0.9% Inj 92 ML IV.SIG PRN (07:28)
[2018-04-03] MEDS ORDERED: Magnesium Oxide 400 MG Tablet PO PRN (07:28)
--- NOTE | 2018-04-03 07:31 | P.PNCC ---
Subjective Subjective Remarks/Hospital Course: Elderly female with a past medical history of COPD on 3 liters home oxygen continuously, bronchial asthma being followed by Dr. Magallon in [place], history of hypertension, paroxysmal atrial fibrillation and questionable PE 30 years ago per daughter. She presented to [facility] ED via [facility] for respiratory distress, status post intubation in the field. According to the daughter, the patient reported progressive worsening shortness of breath for the past 3 daysassociated with coughing and wheezing. She was given a Z-Nilo 1 week ago for a sinus infection by her PMD. She denies any prior history ofintubation. On arrival to the ED, she had a fever with temperature of102.1. She was placed on Diprivan infusion for sedation, and ABG post-intubation showed acute on chronic hypercapnic respiratory acidosis with a pH of 7.35, CO2 68, PaO2 196, bicarbonate 36, saturation of 97%. Chest x-ray showed minimal bibasilar atelectasis. She was noted to have a white count of 11.2 and lactic acid of 1.2. 04/03 Patient is intubated and sedated with Diprivan and Fentanyl drips. Afebrile Objective Vital Signs / I&O: Vital Signs 04/02/18 13:12 04/02/18 13:20 04/02/18 13:35 Temperature 102.1 F H Pulse Rate 74 77 Respiratory Rate 16 16 15 Blood Pressure 127/80 147/67 H Pulse Oximetry 99 100 100 04/02/18 14:01 04/02/18 15:18 04/02/18 16:00 Temperature 100.6 F H 100.1 F H Pulse Rate 75 72 78 Respiratory Rate 16 16 18 Blood Pressure 134/60 146/67 H 154/69 H Pulse Oximetry 40 L 98 99 04/02/18 16:30 04/02/18 17:00 04/02/18 18:00 Temperature 98.1 F Pulse Rate 78 71 70 Respiratory Rate 16 22 18 Blood Pressure 158/78 H 148/71 H 110/61 Pulse Oximetry 100 99 99 04/02/18 20:00 04/02/18 20:32 04/02/18 20:37 Temperature 98.7 F Pulse Rate 66 64 Respiratory Rate 18 19 Blood Pressure 104/55 L Pulse Oximetry 97 100 100 04/03/18 00:00 04/03/18 00:01 04/03/18 04:00 Temperature 98.6 F 98.7 F Pulse Rate 48 L 60 44 L Respiratory Rate 18 19 18 Blood Pressure 104/57 L 112/54 L Pulse Oximetry 97 97 99 04/03/18 04:31 Temperature Pulse Rate 62 Respiratory Rate 18 Blood Pressure Pulse Oximetry 98 Intake & Output 04/02/18 04/03/18 04/03/18 18:59 06:59 18:59 Intake Total 450 / 450 1100 / 1100 Output Total 1350 / 1350 Balance 450 / 450 -250 / -250 Weight 81.647 kg 77 kg Intake: IV 450 / 450 1100 / 1100 Diprivan 1000 mg/100 ml Inj 1, 100 / 100 100 / 100 000 mg In 100 ml @ 5 MCG/KG/MIN 2.449 mls/hr IV.CONT TITRATE PRN Rx#:[id number] NS Inj 1,000 ML @ 75 mls/hr IV. 1000 / 1000 CONT .[id number] DIYA Rx#:[id number] Azithromycin Inj 500 MG In NS 250 / 250 Inj 250 ML @ 250 mls/hr IV.SIG Q24H [facility] Rx#:[id number] Rocephin Inj 1,000 MG In NS Inj 100 / 100 100 ML @ 200 mls/hr IV.SIG Q24H [facility] Rx#:[id number] Output: Urine Amount (Catheter) 1350 / 1350 Indwelling Urethral Catheter 1350 / 1350 Other: Date of Last Bowel Movement 04/01/18 04/01/18 # Bowel Movements 0 Result Diagrams: 04/03/18 05:30 04/03/18 05:30 Other Results: Laboratory Results - last 12 hr 04/02/18 04/02/18 04/02/18 17:10 20:11 23:43 WBC RBC Hgb Hct MCV MCH MCHC RDW Plt Count MPV Prelim Diff (Auto) Neut % (Auto) Lymph % (Auto) Emanuel % (Auto) Eos % (Auto) Baso % (Auto) Neut # (Auto) Lymph # (Auto) Emanuel # (Auto) Eos # (Auto) Baso # (Auto) Differential Comment Sodium Potassium Chloride Carbon Dioxide Anion Gap BUN Creatinine Estimated GFR POC Glucose 170 H 162 H Random Glucose Calcium Phosphorus Magnesium Total Bilirubin AST ALT Alkaline Phosphatase Total Protein Albumin Nasal Screen MRSA (PCR) Not detected 04/03/18 04/03/1818 03:49 05:30 05:30 WBC 7.2 RBC 2.87 L Hgb 8.0 L Hct 24.7 L MCV 86.2 MCH 27.8 MCHC 32.2 RDW 17.5 H Plt Count 192 MPV 10.8 Prelim Diff (Auto) Slide review pending Neut % (Auto) 76.8 H Lymph % (Auto) 18.5 Emanuel % (Auto) 4.5 Eos % (Auto) 0.0 Baso % (Auto) 0.2 Neut # (Auto) 5.6 Lymph # (Auto) 1.3 Emanuel # (Auto) 0.3 Eos # (Auto) 0.0 Baso # (Auto) 0.0 Differential Comment . Sodium 140 Potassium 3.3 L D Chloride 104 Carbon Dioxide 28.7 D Anion Gap 7 BUN 12 Creatinine 0.52 Estimated GFR Greater than 89 POC Glucose 121 H Random Glucose 123 H Calcium 8.0 L Phosphorus 2.6 Magnesium 2.1 Total Bilirubin 0.2 AST 19 ALT 23 Alkaline Phosphatase 94 Total Protein 6.2 L D Albumin 2.6 L Nasal Screen MRSA (PCR) 04/03/18 07:15 WBC RBC Hgb Hct MCV MCH MCHC RDW Plt Count MPV Prelim Diff (Auto) Neut % (Auto) Lymph % (Auto) Emanuel % (Auto) Eos % (Auto) Baso % (Auto) Neut # (Auto) Lymph # (Auto) Emanuel # (Auto) Eos # (Auto) Baso # (Auto) Differential Comment Sodium Potassium Chloride Carbon Dioxide Anion Gap BUN Creatinine Estimated GFR POC Glucose 134 H Random Glucose Calcium Phosphorus Magnesium Total Bilirubin AST ALT Alkaline Phosphatase Total Protein Albumin Nasal Screen MRSA (PCR) Imaging: Chest X-Ray 04/02/18 13:12 CONCLUSION: 1. Minimal bibasilar subsegmental atelectasis. 2. Endotracheal tube 7 cm above the jitendra. Chest CTA 04/02/18 14:53 CONCLUSION: 1. No evidence of pulmonary embolism. 2. Basilar airway disease especially on the right with associated peribronchial opacity and subsegmental pleural-based airspace disease which may be inflammatory. 3. No evidence of suspicious mass or lymphadenopathy. 4. Endotracheal and nasogastric tubes appear to be in good position. Objective Remarks: GENERAL: Patient is 72 yo intubated and sedated SKIN: Warm and dry. HEAD: Normocephalic. EYES: No scleral icterus. No injection or drainage. NECK: Supple, trachea midline. No JVD or lymphadenopathy. CARDIOVASCULAR: Regular rate and rhythm without murmurs, gallops, or rubs. RESPIRATORY: Breath sounds equal bilaterally. No accessory muscle use. GASTROINTESTINAL: Abdomen soft, non-tender, nondistended. MUSCULOSKELETAL: No cyanosis, or edema. Neuro: sedated Assessment and Plan - Assessment and Plan Plan: 1. Acute hypoxemic and hypercapnic respiratory failure. 2. COPD exacerbation. 3. Hypertension. 4. History of paroxysmal atrial fibrillation. 5. Remote history of pulmonary embolism, per daughter. 6 Anemia Plan Neuro: On Diprivan and Fentanyl infusion for sedation. Daily sedation vacation. Pulm: Continue with vent support and maintain sats >92%. Bronchodilators, Solu-Medrol 60 mg IV every 8 hours. ICU vent bundle, SBT as hola CTA chest: No evidence of PE, Basilar airway disease especially on the right with associated peribronchial opacity and subsegmental pleural-based airspace disease which may be inflammatory. No evidence of suspicious mass or lymphadenopathy. CV: Monitor HR and BP and maintain MAP> 65 mmHg. Lactic acid measured at 1.2. : Monitor renal function, I's and O's and electrolyte replacement per protocol. On NS 75 mL an hour. Will need K replacement today GI: on Protonix 40 mg IV daily for GI prophylaxis. Start tube feeds today if remains intubated. ID: Continue abx-Rocephin and Zithromax and monitor for signs of infection( fever and WBC) Followup on sputum cxs, check strep pneumonia, Legionella urinary Ag 04/02: GPC will give Vanco 1gram x1 dose Endo: SSI with Accu-Cheks for glycemic control. GI prophylaxis with Protonix 40 mg daily DVT prophylaxis with sequential compression devices and heparin subcutaneous. Level 3
[2018-04-03 07:49] LABS: Lymphocytes 20 % (9-44); Monocytes 4 % (0-8); Platelet Estimate Normal (Normal); Platelet Morphology Normal (Normal)
[2018-04-03 07:50] LABS: Ovalocytes 1+
[2018-04-03] MEDS: Heparin - SQ 10,000 UNITS/ML Vial SQ SCH ×2 (08:01→21:43)
[2018-04-03] MEDS: Pantoprazole Inj 40 MG Vial IV.PUSH SCH (08:02)
[2018-04-03] MEDS: Potassium Chlor 20 mEq Premix 20 MEQ/100 ML PIGGYBACK IV.SIG PRN ×2 (10:33→12:10)
[2018-04-03] MEDS ORDERED: Vancomycin Inj 1,000 MG in Sodium Chlor 0.9% Inj 250 ML IV.SIG ONE (12:30)
[2018-04-03 14:42] LABS: ABG Base Excess 2.1 mmol/L (-2-2); ABG PCO2 50 mmHg (38-42); ABG PO2 98 mmHG (61-120)
[2018-04-03] MEDS: Azithromycin Inj 500 MG in Sodium Chlor 0.9% Inj 250 ML IV.SIG SCH (17:00)
[2018-04-04] MEDS: Chlorhexidine Gluconate 2% 1 Pack (2 Cloths) TOPICAL SCH (04:02)
[2018-04-04] MEDS: Insulin NovoLIN Regular Correctional Sugar Inj SQ SCH ×4 (04:02→18:41)
[2018-04-04] MEDS: MethylPREDNISolone Sod Succinate Inj 40 MG/ML Vial IV.PUSH SCH ×3 (06:11→21:06)
[2018-04-04 07:44] LABS: Baso % (Auto) 0.1 % (0.0-2.0); Hematocrit 24.3 % (35.0-46.0); Hemoglobin 7.6 gm/dL (11.6-15.3); Lymph # (Auto) 0.5 th/mm3 (1.0-4.8); Lymph % (Auto) 7.3 % (9.0-44.0); Mean Corpuscular HGB Conc 31.1 % (32.0-36.0); Mean Corpuscular Hemoglobin 27.2 pg (27.0-34.0); Mean Corpuscular Volume 87.5 fL (80.0-100.0); Mean Platelet Volume 9.8 fL (7.0-11.0); Mono # (Auto) 0.2 th/mm3 (0.0-0.9); Mono % (Auto) 2.6 % (0.0-8.0); Platelet Count 215 th/mm3 (150-450); Red Blood Count 2.78 mil/mm3 (4.00-5.30); Red Cell Distribution Width 18.2 % (11.6-17.2); White Blood Count 6.7 th/mm3 (4.0-11.0)
[2018-04-04 07:46] LABS: Alanine Aminotransferase 31 U/L (10-53); Albumin 2.6 g/dL (3.4-5.0); Anion Gap 5 meq/L (5-15); Aspartate Aminotransferase 22 U/L (15-37); Blood Urea Nitrogen 19 mg/dL (7-18); Carbon Dioxide 30.8 meq/L (21.0-32.0); Chloride 109 meq/L (98-107); Glomerular Filtration Rate Greater Than 89 mL/min (>89); Glucose,Random 132 mg/dL (74-106); Magnesium 2.3 mg/dL (1.5-2.5); Phosphorus 3.3 mg/dL (2.5-4.9); Sodium 145 meq/L (136-145)
[2018-04-04 07:49] LABS: Alkaline Phosphatase 87 U/L (45-117); Total Protein 6.1 g/dL (6.4-8.2)
--- NOTE | 2018-04-04 08:10 | P.PNCC ---
Subjective Subjective Remarks/Hospital Course: Elderly female with a past medical history of COPD on 3 liters home oxygen continuously, bronchial asthma being followed by Dr. Magallon in [place], history of hypertension, paroxysmal atrial fibrillation and questionable PE 30 years ago per daughter. She presented to [facility] ED via [facility] for respiratory distress, status post intubation in the field. According to the daughter, the patient reported progressive worsening shortness of breath for the past 3 daysassociated with coughing and wheezing. She was given a Z-Nilo 1 week ago for a sinus infection by her PMD. She denies any prior history ofintubation. On arrival to the ED, she had a fever with temperature of102.1. She was placed on Diprivan infusion for sedation, and ABG post-intubation showed acute on chronic hypercapnic respiratory acidosis with a pH of 7.35, CO2 68, PaO2 196, bicarbonate 36, saturation of 97%. Chest x-ray showed minimal bibasilar atelectasis. She was noted to have a white count of 11.2 and lactic acid of 1.2. 04/03 Patient is intubated and sedated with Diprivan and Fentanyl drips. Afebrile 04/04 Patient was extubated yesterday on 4L oxygen. Afebrile. Awake and alert. Objective Vital Signs / I&O: Vital Signs 04/03/18 08:31 04/03/18 08:44 04/03/18 09:00 Temperature Pulse Rate 45 L 50 L 48 L Respiratory Rate 18 12 15 Blood Pressure 121/57 L 129/62 Pulse Oximetry 96 96 96 04/03/18 09:30 04/03/18 10:00 04/03/18 10:30 Temperature Pulse Rate 54 L 57 L 51 L Respiratory Rate 12 9 L 16 Blood Pressure 133/61 115/56 L 148/67 H Pulse Oximetry 96 97 97 04/03/18 11:00 04/03/18 11:30 04/03/18 11:38 Temperature Pulse Rate 55 L 55 L 51 L Respiratory Rate 11 L 10 L 17 Blood Pressure 130/62 133/61 Pulse Oximetry 97 97 98 04/03/18 12:00 04/03/18 12:30 04/03/18 13:00 Temperature 98.3 F Pulse Rate 57 L 58 L 59 L Respiratory Rate 16 12 11 L Blood Pressure 134/64 134/62 132/60 Pulse Oximetry 97 97 97 04/03/18 13:30 04/03/18 14:00 04/03/18 14:30 Temperature Pulse Rate 61 60 62 Respiratory Rate 10 L 13 17 Blood Pressure 135/62 138/65 145/65 H Pulse Oximetry 97 98 99 04/03/18 15:00 04/03/18 15:31 04/03/18 16:00 Temperature 98.4 F Pulse Rate 65 72 62 Respiratory Rate 17 25 H 30 H Blood Pressure 146/67 H 137/63 139/66 Pulse Oximetry 96 96 98 04/03/18 16:07 04/03/18 16:30 04/03/18 17:00 Temperature Pulse Rate 65 62 Respiratory Rate 23 18 Blood Pressure 155/68 H 147/64 H Pulse Oximetry 99 97 97 04/03/18 17:30 04/03/18 18:00 04/03/18 18:30 Temperature Pulse Rate 67 66 64 Respiratory Rate 18 25 H 29 H Blood Pressure 147/71 H 158/70 H 148/65 H Pulse Oximetry 97 99 97 04/03/18 20:00 04/03/18 23:52 04/04/18 00:00 Temperature 98.1 F Pulse Rate 60 82 61 Respiratory Rate 23 22 19 Blood Pressure 137/63 120/56 L Pulse Oximetry 98 99 66 L 04/04/18 04:00 04/04/18 04:06 04/04/18 04:07 Temperature 98.0 F Pulse Rate 69 87 Respiratory Rate 24 20 Blood Pressure 104/67 Pulse Oximetry 96 98 Intake & Output 04/03/18 04/04/18 04/04/18 18:59 06:59 18:59 Intake Total 2049 100 / 100 Output Total 450 / 450 0 / 0 Balance 1600 / 1600 100 / 100 Weight 78.5 kg Intake: IV 2049 100 / 100 Diprivan 1000 mg/100 ml Inj 1, 100 / 100 000 mg In 100 ml @ 5 MCG/KG/MIN 2.449 mls/hr IV.CONT TITRATE PRN Rx#:[id number] NS Inj 1,000 ML @ 75 mls/hr IV. 1000 / 1000 CONT .[id number] DIYA Rx#:[id number] Azithromycin Inj 500 MG In NS 250 / 250 Inj 250 ML @ 250 mls/hr IV.SIG Q24H [facility] Rx#:[id number] KCl 20 mEq Premix Inj 20 meq In 100 / 100 100 / 100 100 ml @ 50 mls/hr IV.SIG Q2H PRN Rx#:[id number] Vancomycin Inj 1,000 MG In NS 250 / 250 Inj 250 ML @ 250 mls/hr IV.SIG ONCE ONE Rx#:[id number] Rocephin Inj 1,000 MG In NS Inj 100 / 100 100 ML @ 200 mls/hr IV.SIG Q24H [facility] Rx#:[id number] fentaNYL 10 mcg/mL Premix Drip 250 / 250 2,500 mcg In 250 ml @ 50 MCG/HR 5 mls/hr IV.SIG TITRATE PRN Rx #:[id number] Oral 0 / 0 0 / 0 Output: Urine Amount (Catheter) 450 / 450 0 / 0 Indwelling Urethral Catheter 450 / 450 0 / 0 Other: Date of Last Bowel Movement 04/01/18 04/01/18 # Bowel Movements 0 0 Result Diagrams: 04/04/18 06:19 04/04/18 06:19 Other Results: Laboratory Results - last 12 hr 04/03/18 04/04/18 04/04/18 23:47 06:19 06:19 WBC 6.7 RBC 2.78 L Hgb 7.6 L Hct 24.3 L MCV 87.5 MCH 27.2 MCHC 31.1 L RDW 18.2 H Plt Count 215 MPV 9.8 Neut % (Auto) 90.0 H Lymph % (Auto) 7.3 L Foster % (Auto) 2.6 Eos % (Auto) 0.0 Baso % (Auto) 0.1 Neut # (Auto) 6.0 Lymph # (Auto) 0.5 L Foster # (Auto) 0.2 Eos # (Auto) 0.0 Baso # (Auto) 0.0 WBC Differential . Differential Comment Auto diff final Sodium 145 Potassium 4.0 Chloride 109 H Carbon Dioxide 30.8 Anion Gap 5 BUN 19 H Creatinine 0.46 L Estimated GFR Greater than 89 POC Glucose 132 H Random Glucose 132 H Calcium 8.0 L Phosphorus 3.3 Magnesium 2.3 Total Bilirubin 0.2 AST 22 ALT 31 Alkaline Phosphatase 87 Total Protein 6.1 L Albumin 2.6 L 04/04/18 07:44 WBC RBC Hgb Hct MCV MCH MCHC RDW Plt Count MPV Neut % (Auto) Lymph % (Auto) Foster % (Auto) Eos % (Auto) Baso % (Auto) Neut # (Auto) Lymph # (Auto) Foster # (Auto) Eos # (Auto) Baso # (Auto) WBC Differential Differential Comment Sodium Potassium Chloride Carbon Dioxide Anion Gap BUN Creatinine Estimated GFR POC Glucose 139 H Random Glucose Calcium Phosphorus Magnesium Total Bilirubin AST ALT Alkaline Phosphatase Total Protein Albumin Imaging: Chest X-Ray 04/02/18 13:12 CONCLUSION: 1. Minimal bibasilar subsegmental atelectasis. 2. Endotracheal tube 7 cm above the jitendra. Chest CTA 04/02/18 14:53 CONCLUSION: 1. No evidence of pulmonary embolism. 2. Basilar airway disease especially on the right with associated peribronchial opacity and subsegmental pleural-based airspace disease which may be inflammatory. 3. No evidence of suspicious mass or lymphadenopathy. 4. Endotracheal and nasogastric tubes appear to be in good position. Objective Remarks: GENERAL: Patient is 72 yo lying in bed in NAD SKIN: Warm and dry. HEAD: Normocephalic. EYES: No scleral icterus. No injection or drainage. NECK: Supple, trachea midline. No JVD or lymphadenopathy. CARDIOVASCULAR: Regular rate and rhythm without murmurs, gallops, or rubs. RESPIRATORY: Breath sounds equal bilaterally. No accessory muscle use. GASTROINTESTINAL: Abdomen soft, non-tender, nondistended. MUSCULOSKELETAL: No cyanosis, or edema. Neuro: Awake and alert Assessment and Plan - Assessment and Plan Plan: 1. Acute hypoxemic and hypercapnic respiratory failure. 2. COPD exacerbation. 3. Hypertension. 4. History of paroxysmal atrial fibrillation. 5. Remote history of pulmonary embolism, per daughter. 6 Anemia Plan Neuro: Awake and alert, avoid sedatives Pulm: Continue with oxygen and maintain sats >92%. Bronchodilators, decrease Solu-Medrol 40mg IV Q12 BIPAP PRN for resp distress CTA chest: No evidence of PE, Basilar airway disease especially on the right with associated peribronchial opacity and subsegmental pleural-based airspace disease which may be inflammatory. No evidence of suspicious mass or lymphadenopathy. CV: Monitor HR and BP and maintain MAP> 65 mmHg. Lactic acid measured at 1.2. : Monitor renal function, I's and O's and electrolyte replacement per protocol. d/c IVF GI: on Protonix 40 mg IV daily for GI prophylaxis. Speech eval, diet per speech ID: Continue abx-Rocephin and Zithromax and monitor for signs of infection( fever and WBC) Followup on sputum cxs, strep pneumonia, Legionella urinary Ag-pending BC 04/02: Strep species Endo: SSI with Accu-Cheks for glycemic control. GI prophylaxis with Protonix 40 mg daily DVT prophylaxis with sequential compression devices and heparin subcutaneous. Discussed with patient's daughter at bedside and updated her on her condition. Will sign off and transfer care to [facility] Level 2
[2018-04-04] MEDS: Pantoprazole Inj 40 MG Vial IV.PUSH SCH (08:55)
[2018-04-04] MEDS: Heparin - SQ 10,000 UNITS/ML Vial SQ SCH ×2 (08:55→21:06)
[2018-04-04] MEDS: Azithromycin Inj 500 MG in Sodium Chlor 0.9% Inj 250 ML IV.SIG SCH (15:00)
[2018-04-05] MEDS: Insulin NovoLIN Regular Correctional Sugar Inj SQ SCH ×5 (00:15→22:00)
[2018-04-05] MEDS: Chlorhexidine Gluconate 2% 1 Pack (2 Cloths) TOPICAL SCH (03:22)
[2018-04-05 05:52] LABS: Hematocrit 23.8 % (35.0-46.0); Hemoglobin 7.5 gm/dL (11.6-15.3); Lymph # (Auto) 0.6 th/mm3 (1.0-4.8); Mean Corpuscular HGB Conc 31.4 % (32.0-36.0); Mean Corpuscular Hemoglobin 27.2 pg (27.0-34.0); Mean Corpuscular Volume 86.5 fL (80.0-100.0); Mean Platelet Volume 8.9 fL (7.0-11.0); Mono # (Auto) 0.2 th/mm3 (0.0-0.9); Neut # (Auto) 4.9 th/mm3 (1.8-7.7); Platelet Count 234 th/mm3 (150-450); Red Blood Count 2.75 mil/mm3 (4.00-5.30); Red Cell Distribution Width 17.9 % (11.6-17.2); White Blood Count 5.7 th/mm3 (4.0-11.0)
[2018-04-05 06:17] LABS: Albumin 2.7 g/dL (3.4-5.0); Anion Gap 6 meq/L (5-15); Aspartate Aminotransferase 23 U/L (15-37); Blood Urea Nitrogen 22 mg/dL (7-18); Calcium 8.3 mg/dL (8.5-10.1); Carbon Dioxide 32.1 meq/L (21.0-32.0); Chloride 106 meq/L (98-107); Glomerular Filtration Rate Greater Than 89 mL/min (>89); Glucose,Random 140 mg/dL (74-106); Magnesium 2.4 mg/dL (1.5-2.5); Potassium 3.8 meq/L (3.5-5.1); Sodium 144 meq/L (136-145)
[2018-04-05 06:19] LABS: Alanine Aminotransferase 52 U/L (10-53); Alkaline Phosphatase 87 U/L (45-117); Phosphorus 2.5 mg/dL (2.5-4.9); Total Protein 6.2 g/dL (6.4-8.2)
--- NOTE | 2018-04-05 07:19 | P.PN ---
Subjective Interval history: Follow-up acute hypoxemic and hypercapnic respiratory failure April 05, 2018-patient seen and examined, currently on nasal cannula and denies any shortness of breath overnight. Remains afebrile. Positive for cough production. Case discussed with daughter at bedside. Case also discussed with RN Physical Exam Vital signs: Vital Signs 04/04/18 08:00 04/04/18 08:18 04/04/18 09:00 Temperature 98.4 F Pulse Rate 63 61 76 Respiratory Rate 18 20 Blood Pressure 137/67 Pulse Oximetry 95 99 04/04/18 10:01 04/04/18 10:30 04/04/18 11:00 Temperature Pulse Rate 78 82 Respiratory Rate 23 28 H Blood Pressure 151/76 H 122/60 135/61 Pulse Oximetry 95 95 04/04/18 11:30 04/04/18 11:35 04/04/18 12:00 Temperature 98.2 F Pulse Rate 70 71 77 Respiratory Rate 24 26 H 20 Blood Pressure 118/56 L 132/60 Pulse Oximetry 97 96 04/04/18 12:30 04/04/18 13:00 04/04/18 13:30 Temperature Pulse Rate 80 78 78 Respiratory Rate 20 20 17 Blood Pressure 124/60 111/53 L 115/56 L Pulse Oximetry 95 95 95 04/04/18 14:00 04/04/18 14:30 04/04/18 15:00 Temperature Pulse Rate 75 71 71 Respiratory Rate 18 17 17 Blood Pressure 116/57 L 114/56 L 116/56 L Pulse Oximetry 95 96 97 04/04/18 15:30 04/04/18 16:00 04/04/18 16:01 Temperature 98 F Pulse Rate 73 71 72 Respiratory Rate 24 23 25 H Blood Pressure 134/61 144/65 H 137/62 Pulse Oximetry 98 99 98 04/04/18 16:30 04/04/18 16:32 04/04/18 17:00 Temperature Pulse Rate 66 65 72 Respiratory Rate 21 24 22 Blood Pressure 144/65 H 132/60 Pulse Oximetry 100 99 99 04/04/18 17:30 04/04/18 18:00 04/04/18 18:30 Temperature Pulse Rate 71 77 80 Respiratory Rate 18 28 H 24 Blood Pressure 132/57 L 136/62 159/69 H Pulse Oximetry 98 98 97 04/04/18 19:00 04/04/18 19:30 04/04/18 20:00 Temperature 97.9 F Pulse Rate 72 70 68 Respiratory Rate 16 20 21 Blood Pressure 128/59 L 121/57 L 133/63 Pulse Oximetry 98 98 97 04/04/18 20:30 04/04/18 21:00 04/04/18 21:30 Temperature Pulse Rate 67 69 65 Respiratory Rate 19 18 18 Blood Pressure 124/58 L 132/60 134/63 Pulse Oximetry 97 99 99 04/04/18 22:00 04/04/18 22:30 04/04/18 23:00 Temperature Pulse Rate 66 64 71 Respiratory Rate 18 18 20 Blood Pressure 132/62 134/63 152/70 H Pulse Oximetry 98 97 96 04/04/18 23:30 04/05/18 00:00 04/05/18 00:30 Temperature 98.6 F Pulse Rate 64 63 62 Respiratory Rate 18 21 17 Blood Pressure 163/73 H 149/67 H 148/69 H Pulse Oximetry 97 97 97 04/05/18 01:00 04/05/18 01:30 04/05/18 02:00 Temperature Pulse Rate 72 65 64 Respiratory Rate 24 19 19 Blood Pressure 150/76 H 163/76 H 156/74 H Pulse Oximetry 96 97 98 04/05/18 02:30 04/05/18 03:00 04/05/18 03:30 Temperature Pulse Rate 62 66 61 Respiratory Rate 17 21 17 Blood Pressure 152/71 H 156/96 H 155/70 H Pulse Oximetry 97 99 98 04/05/18 04:00 04/05/18 04:30 04/05/18 04:45 Temperature 98.2 F Pulse Rate 65 66 67 Respiratory Rate 19 20 22 Blood Pressure 161/76 H 163/73 H Pulse Oximetry 98 97 04/05/18 04:46 04/05/18 05:00 04/05/18 05:30 Temperature Pulse Rate 66 67 Respiratory Rate 18 17 Blood Pressure 173/83 H 153/72 H Pulse Oximetry 97 98 95 04/05/18 06:00 04/05/18 06:01 Temperature Pulse Rate 90 87 Respiratory Rate 33 H 33 H Blood Pressure 135/67 Pulse Oximetry 92 L 91 L Intake & Output 04/04/18 04/05/18 04/05/18 18:59 06:59 18:59 Intake Total 580 / 580 Output Total 40 / 40 Balance 580 / 580 -40 / -40 Weight 79.5 kg Intake: IV 100 / 100 Rocephin Inj 1,000 MG In NS Inj 100 / 100 100 ML @ 200 mls/hr IV.SIG Q24H DIYA Rx#:[id number] Oral 480 / 480 Output: Urine 40 / 40 Other: # Voids 4 Date of Last Bowel Movement 04/01/18 04/03/18 # Bowel Movements 0 Narrative: GENERAL: NAD SKIN: Warm and dry. HEAD: Atraumatic. Normocephalic. EYES: Pupils equal and round. No scleral icterus. No injection or drainage. ENT: No nasal bleeding or discharge. Mucous membranes pink and moist. NECK: Trachea midline. No JVD. CARDIOVASCULAR: Regular rate and rhythm. RESPIRATORY: No accessory muscle use. Clear to auscultation. Breath sounds equal bilaterally. GASTROINTESTINAL: Abdomen soft, non-tender, nondistended. Hepatic and splenic margins not palpable. MUSCULOSKELETAL: Extremities without clubbing, cyanosis, or edema. No obvious deformities. NEUROLOGICAL: Awake and alert. No obvious cranial nerve deficits. Motor grossly within normal limits. Five out of 5 muscle strength in the arms and legs. Normal speech. PSYCHIATRIC: Appropriate mood and affect; insight and judgment normal. - Urinary Catheter Management Indwelling Urethral Catheter Cath placed during this visit: yes Reason for continuing: Hourly intake/output Insertion date: 04/02/18 Insertion time: 13:25 Results - Labs CBC & Chem 7: 04/05/18 05:17 04/05/18 05:17 Laboratory Results - last 24 hr 04/02/18 04/04/18 04/04/18 14:04 06:19 06:19 WBC 6.7 RBC 2.78 L Hgb 7.6 L Hct 24.3 L MCV 87.5 MCH 27.2 MCHC 31.1 L RDW 18.2 H Plt Count 215 MPV 9.8 Neut % (Auto) 90.0 H Lymph % (Auto) 7.3 L Bell % (Auto) 2.6 Eos % (Auto) 0.0 Baso % (Auto) 0.1 Neut # (Auto) 6.0 Lymph # (Auto) 0.5 L Bell # (Auto) 0.2 Eos # (Auto) 0.0 Baso # (Auto) 0.0 WBC Differential . Differential Comment Auto diff final Puncture Site Right radial Patient Temperature 98.6 O2 Saturation 97 ABG pH 7.35 L ABG pCO2 68 H* ABG pO2 196 H ABG HCO3 36 H ABG O2 Content 12.0 ABG Base Excess 10.2 H ABG Methemoglobin 0.8 Cooper Test Present Hemoglobin 8.4 L Carboxyhemoglobin 1.3 O2 Delivery Device Ventilator Vent Setting Inspired O2 80 Critical Value Yes Sodium 145 Potassium 4.0 Chloride 109 H Carbon Dioxide 30.8 Anion Gap 5 BUN 19 H Creatinine 0.46 L Estimated GFR Greater than 89 POC Glucose Random Glucose 132 H Calcium 8.0 L Phosphorus 3.3 Magnesium 2.3 Total Bilirubin 0.2 AST 22 ALT 31 Alkaline Phosphatase 87 Total Protein 6.1 L Albumin 2.6 L 04/04/18 04/04/18 04/04/18 07:44 11:58 18:36 WBC RBC Hgb Hct MCV MCH MCHC RDW Plt Count MPV Neut % (Auto) Lymph % (Auto) Bell % (Auto) Eos % (Auto) Baso % (Auto) Neut # (Auto) Lymph # (Auto) Bell # (Auto) Eos # (Auto) Baso # (Auto) WBC Differential Differential Comment Puncture Site Patient Temperature O2 Saturation ABG pH ABG pCO2 ABG pO2 ABG HCO3 ABG O2 Content ABG Base Excess ABG Methemoglobin Cooper Test Hemoglobin Carboxyhemoglobin O2 Delivery Device Vent Setting Inspired O2 Critical Value Sodium Potassium Chloride Carbon Dioxide Anion Gap BUN Creatinine Estimated GFR POC Glucose 139 H 251 H 161 H Random Glucose Calcium Phosphorus Magnesium Total Bilirubin AST ALT Alkaline Phosphatase Total Protein Albumin 04/04/18 04/05/18 04/05/18 23:24 05:17 05:17 WBC 5.7 RBC 2.75 L Hgb 7.5 L Hct 23.8 L MCV 86.5 MCH 27.2 MCHC 31.4 L RDW 17.9 H Plt Count 234 MPV 8.9 Neut % (Auto) 85.0 H Lymph % (Auto) 11.0 Bell % (Auto) 4.0 Eos % (Auto) 0.0 Baso % (Auto) 0.0 Neut # (Auto) 4.9 Lymph # (Auto) 0.6 L Bell # (Auto) 0.2 Eos # (Auto) 0.0 Baso # (Auto) 0.0 WBC Differential . Differential Comment Auto diff final Puncture Site Patient Temperature O2 Saturation ABG pH ABG pCO2 ABG pO2 ABG HCO3 ABG O2 Content ABG Base Excess ABG Methemoglobin Cooper Test Hemoglobin Carboxyhemoglobin O2 Delivery Device Vent Setting Inspired O2 Critical Value Sodium 144 Potassium 3.8 Chloride 106 Carbon Dioxide 32.1 H Anion Gap 6 BUN 22 H Creatinine 0.43 L Estimated GFR Greater than 89 POC Glucose 174 H Random Glucose 140 H Calcium 8.3 L Phosphorus 2.5 Magnesium 2.4 Total Bilirubin 0.2 AST 23 ALT 52 Alkaline Phosphatase 87 Total Protein 6.2 L Albumin 2.7 L Microbiology 04/02/18 20:45 Sputum - Endotracheal Gram Stain - Final 04/02/18 20:45 Sputum - Endotracheal Sputum Culture - Final Moderate growth normal respiratory eliceo 04/02/18 13:45 Blood - Peripheral Aerobic Blood Culture - Preliminary Viridans streptococcus grp 04/02/18 13:45 Blood - Peripheral Anaerobic Blood Culture - Preliminary No growth in 2 days 04/03/18 12:53 Blood - Peripheral Aerobic Blood Culture - Preliminary No growth in 1 day 04/03/18 12:53 Blood - Peripheral Anaerobic Blood Culture - Preliminary No growth in 1 day 04/03/18 12:48 Blood - Peripheral Aerobic Blood Culture - Preliminary No growth in 1 day 04/03/18 12:48 Blood - Peripheral Anaerobic Blood Culture - Preliminary No growth in 1 day 04/02/18 14:00 Blood - Peripheral Aerobic Blood Culture - Preliminary No growth in 2 days 04/02/18 14:00 Blood - Peripheral Anaerobic Blood Culture - Preliminary No growth in 2 days 04/03/18 15:30 Urine - Catheterized Urine Streptococcus pneumoniae Antigen ( M - Final Presumptive negative for streptococcus pneumoniae antigen, suggesting no current or recent infection. Infection due to Streptococcus pneumoniae cannot be ruled out since the antigen present in the sample may be below the detection limit of the test. 04/03/18 15:30 Urine - Catheterized Urine Legionella Antigen - Final Presumptive negative for Legionella pneumophila serogroup 1 antigen in urine, suggesting no recent or recurrent infection. Infection due to Legionella cannot be ruled out since other serogroups and species may cause disease, antigen may not be present in urine in early infection, and the level of antigen present in the urine may be below the detection limit of the test. - Imaging Impressions Chest X-Ray 04/02/18 13:12 CONCLUSION: 1. Minimal bibasilar subsegmental atelectasis. 2. Endotracheal tube 7 cm above the jitendra. Chest CTA 04/02/18 14:53 CONCLUSION: 1. No evidence of pulmonary embolism. 2. Basilar airway disease especially on the right with associated peribronchial opacity and subsegmental pleural-based airspace disease which may be inflammatory. 3. No evidence of suspicious mass or lymphadenopathy. 4. Endotracheal and nasogastric tubes appear to be in good position. Assessment and Plan - Plan 72-year-old female with COPD exacerbation with acute hypoxemia and hypercapnic respiratory failure Currently on Solu-Medrol 40 mg IV every 12 hours Start Spiriva daily, Symbicort, Mucinex and continue with scheduled DuoNeb and as needed as well as azithromycin however changed to p.o. Maintain oxygen saturation above 92% Continue to monitor cultures Pneumococcal and Legionella urinary antigen negatives BiPAP PRN History of paroxysmal atrial fibrillation Resume Cardizem and Amiodarone Patient currently not on any oral anticoagulation Start ASA Hypertension Resume Cardizem, continue to hold Toprol XL Normochromic normocytic anemia H&H currently at his baseline, transfuse for hemoglobin less than 7 Monitor CBC History of remote pulmonary embolism-per daughter's account GI prophylaxis with Protonix 40 mg daily DVT prophylaxis with sequential compression devices and heparin subcutaneous. PT consult to treat any Transfer to [facility]
[2018-04-05] MEDS: dilTIAZem CD 240 MG Capsule PO SCH (08:09)
[2018-04-05] MEDS: MethylPREDNISolone Sod Succinate Inj 40 MG/ML Vial IV.PUSH SCH ×2 (08:09→20:33)
[2018-04-05] MEDS: guaiFENesin 600 MG ER Tablet PO SCH ×2 (08:09→20:33)
[2018-04-05] MEDS: Heparin - SQ 10,000 UNITS/ML Vial SQ SCH ×2 (08:09→20:33)
[2018-04-05] MEDS: Pantoprazole Inj 40 MG Vial IV.PUSH SCH (08:09)
[2018-04-05] MEDS: Amiodarone 200 MG Tablet PO SCH (08:09)
[2018-04-05] MEDS: Budesonide-Formoterol 160/4.5 MCG 6 GM Inhaler INH SCH ×2 (08:10→21:00)
[2018-04-05] MEDS: Tiotropium Bromide 18 MCG/ACT Inhaler INH SCH (08:10)
[2018-04-05] MEDS: Azithromycin Inj 500 MG in Sodium Chlor 0.9% Inj 250 ML IV.SIG SCH (16:08)
[2018-04-05] MEDS: traZODone 50 MG Tablet PO SCH (20:37)
[2018-04-06] MEDS: Chlorhexidine Gluconate 2% 1 Pack (2 Cloths) TOPICAL SCH (06:26)
[2018-04-06] MEDS: Insulin NovoLIN Regular Correctional Sugar Inj SQ SCH ×3 (06:26→22:09)
[2018-04-06] MEDS: Sod Chloride 0.9% Inj 1,000 ML IV.CONT SCH (07:45)
[2018-04-06] MEDS: Budesonide-Formoterol 160/4.5 MCG 6 GM Inhaler INH SCH ×2 (08:54→20:27)
[2018-04-06] MEDS: Heparin - SQ 10,000 UNITS/ML Vial SQ SCH ×2 (08:54→20:23)
[2018-04-06] MEDS: Tiotropium Bromide 18 MCG/ACT Inhaler INH SCH (08:54)
[2018-04-06] MEDS: Pantoprazole Inj 40 MG Vial IV.PUSH SCH (08:55)
[2018-04-06] MEDS: dilTIAZem CD 240 MG Capsule PO SCH (08:55)
[2018-04-06] MEDS: MethylPREDNISolone Sod Succinate Inj 40 MG/ML Vial IV.PUSH SCH ×2 (08:55→20:24)
[2018-04-06] MEDS: guaiFENesin 600 MG ER Tablet PO SCH ×2 (08:56→20:26)
[2018-04-06] MEDS: Amiodarone 200 MG Tablet PO SCH (08:56)
[2018-04-06] MEDS: Azithromycin 250 MG Tablet PO SCH (08:59)
--- NOTE | 2018-04-06 09:01 | P.PN ---
Subjective Interval history: Follow-up acute hypoxemic and hypercapnic respiratory failure April 05, 2018-patient seen and examined, currently on nasal cannula and denies any shortness of breath overnight. Remains afebrile. Positive for cough production. Case discussed with daughter at bedside. Case also discussed with RN April 06, 2018-patient seen and examined, denies any chest pain, no shortness of breath. Stable this a.m. Daughter by the bedside. Physical Exam Vital signs: Vital Signs 04/05/18 09:00 04/05/18 10:21 04/05/18 10:50 Temperature 97.5 F L Pulse Rate 68 80 Respiratory Rate Blood Pressure Pulse Oximetry 92 L 04/05/18 11:05 04/05/18 11:10 04/05/18 11:21 Temperature 97.5 F L Pulse Rate 76 80 73 Respiratory Rate 20 16 Blood Pressure 146/75 H Pulse Oximetry 95 04/05/18 12:00 04/05/18 13:00 04/05/18 15:00 Temperature 97.5 F L Pulse Rate 84 72 87 Respiratory Rate 17 Blood Pressure 146/75 H Pulse Oximetry 04/05/18 15:34 04/05/18 16:42 04/05/18 16:43 Temperature Pulse Rate 78 87 78 Respiratory Rate 16 Blood Pressure Pulse Oximetry 04/05/18 16:44 04/05/18 19:00 04/05/18 20:00 Temperature 98.0 F 98 F Pulse Rate 78 74 71 Respiratory Rate 20 20 20 Blood Pressure 120/85 132/73 Pulse Oximetry 94 L 98 04/05/18 21:00 04/05/18 22:00 04/05/18 23:00 Temperature Pulse Rate 76 72 77 Respiratory Rate Blood Pressure Pulse Oximetry 04/05/18 23:57 04/06/18 00:00 04/06/18 01:00 Temperature 98.1 F Pulse Rate 71 75 68 Respiratory Rate 16 16 Blood Pressure 131/73 Pulse Oximetry 94 L 04/06/18 02:00 04/06/18 03:00 04/06/18 04:00 Temperature 98.1 F Pulse Rate 76 61 64 Respiratory Rate 18 Blood Pressure 147/85 H Pulse Oximetry 94 L 04/06/18 04:13 04/06/18 05:00 04/06/18 06:00 Temperature Pulse Rate 87 68 78 Respiratory Rate 17 Blood Pressure Pulse Oximetry 04/06/18 07:00 Temperature Pulse Rate 62 Respiratory Rate Blood Pressure Pulse Oximetry Intake & Output 04/05/18 04/06/18 04/06/18 18:59 06:59 18:59 Intake Total 350 / 350 480 / 480 1000 / 1000 Output Total 350 / 350 2 / 2 Balance 0 / 0 478 / 478 1000 / 1000 Weight 82.6 kg Intake: IV 350 / 350 1000 / 1000 Azithromycin Inj 500 MG In NS 250 / 250 Inj 250 ML @ 250 mls/hr IV.SIG Q24H DIYA Rx#:[id number] Rocephin Inj 1,000 MG In NS Inj 100 / 100 100 ML @ 200 mls/hr IV.SIG Q24H DIYA Rx#:[id number] Oral 480 / 480 Output: Urine 350 / 350 Urine Amount (Catheter) / Indwelling Urethral Catheter Other: Date of Last Bowel Movement 04/05/18 # Bowel Movements 1 Narrative: GENERAL: NAD SKIN: Warm and dry. HEAD: Atraumatic. Normocephalic. EYES: Pupils equal and round. No scleral icterus. No injection or drainage. ENT: No nasal bleeding or discharge. Mucous membranes pink and moist. NECK: Trachea midline. No JVD. CARDIOVASCULAR: Regular rate and rhythm. RESPIRATORY: No accessory muscle use. Clear to auscultation. Breath sounds equal bilaterally. GASTROINTESTINAL: Abdomen soft, non-tender, nondistended. Hepatic and splenic margins not palpable. MUSCULOSKELETAL: Extremities without clubbing, cyanosis, or edema. No obvious deformities. NEUROLOGICAL: Awake and alert. No obvious cranial nerve deficits. Motor grossly within normal limits. Five out of 5 muscle strength in the arms and legs. Normal speech. PSYCHIATRIC: Appropriate mood and affect; insight and judgment normal. - Urinary Catheter Management Indwelling Urethral Catheter Cath placed during this visit: yes Reason for continuing: Hourly intake/output Insertion date: 04/02/18 Insertion time: 13:25 Results - Labs CBC & Chem 7: 04/06/18 09:26 04/06/18 09:26 Laboratory Results - last 24 hr 04/05/18 04/05/18 04/06/18 12:07 20:46 06:15 POC Glucose 155 H 156 H 170 H Microbiology 04/02/18 13:45 Blood - Peripheral Aerobic Blood Culture - Final Viridans streptococcus grp 04/02/18 13:45 Blood - Peripheral Anaerobic Blood Culture - Preliminary No growth in 3 days 04/03/18 12:53 Blood - Peripheral Aerobic Blood Culture - Preliminary No growth in 2 days 04/03/18 12:53 Blood - Peripheral Anaerobic Blood Culture - Preliminary No growth in 2 days 04/03/18 12:48 Blood - Peripheral Aerobic Blood Culture - Preliminary No growth in 2 days 04/03/18 12:48 Blood - Peripheral Anaerobic Blood Culture - Preliminary No growth in 2 days 04/02/18 14:00 Blood - Peripheral Aerobic Blood Culture - Preliminary No growth in 3 days 04/02/18 14:00 Blood - Peripheral Anaerobic Blood Culture - Preliminary No growth in 3 days - Procedures none Assessment and Plan - Plan 72-year-old female with COPD exacerbation with acute hypoxemia and hypercapnic respiratory failure Currently on Solu-Medrol 40 mg IV every 12 hours; decrease to 20 mg IV every 12 hours Continue Spiriva daily, Symbicort, Mucinex and continue with scheduled DuoNeb and as needed as well as azithromycin however changed to p.o. Maintain oxygen saturation above 92% Continue to monitor cultures Pneumococcal and Legionella urinary antigen negatives BiPAP PRN History of paroxysmal atrial fibrillation Resume Cardizem and Amiodarone Patient currently not on any oral anticoagulation Continue ASA Hypertension Continue Cardizem, continue to hold Toprol XL Normochromic normocytic anemia H&H currently at his baseline, transfuse for hemoglobin less than 7 Monitor CBC History of remote pulmonary embolism-per daughter's account GI prophylaxis with Protonix 40 mg daily DVT prophylaxis with sequential compression devices and heparin subcutaneous. PT consult to treat any Discharge Planning: Likely discharge 04/07/18
--- NOTE | 2018-04-06 09:03 | P.DCO ---
- Diagnosis (1) Acute hypoxemic respiratory failure Status: Acute (2) COPD exacerbation Status: Acute - Physical Therapy Order: Evaluate and treat - Home Health Nursing Order: Signs/symptoms of disease process - Case Management Consult No - Certification I have seen patient Sally Barragan on 04/06/18. My clinical findings support the need for the requested home health care services because: Patient has SOB I certify that my clinical findings support that this patient is homebound because: Hx COPD - exertion dyspnea/weakness, Poor cardiac reserve
[2018-04-06] MEDS: FLUoxetine 20 MG Capsule PO SCH (09:54)
[2018-04-06 10:01] LABS: Hemoglobin 8.1 gm/dL (11.6-15.3); Lymph # (Auto) 0.7 th/mm3 (1.0-4.8); Lymph % (Auto) 11.2 % (9.0-44.0); Mean Corpuscular HGB Conc 32.5 % (32.0-36.0); Mean Corpuscular Hemoglobin 27.7 pg (27.0-34.0); Mean Corpuscular Volume 85.2 fL (80.0-100.0); Mono # (Auto) 0.3 th/mm3 (0.0-0.9); Mono % (Auto) 5.4 % (0.0-8.0); Neut # (Auto) 5.1 th/mm3 (1.8-7.7); Neut % (Auto) 83.4 % (16.0-70.0); Platelet Count 281 th/mm3 (150-450); Red Blood Count 2.94 mil/mm3 (4.00-5.30); Red Cell Distribution Width 17.8 % (11.6-17.2); White Blood Count 6.1 th/mm3 (4.0-11.0)
[2018-04-06 10:23] LABS: Albumin 2.9 g/dL (3.4-5.0); Anion Gap 10 meq/L (5-15); Aspartate Aminotransferase 14 U/L (15-37); Blood Urea Nitrogen 15 mg/dL (7-18); Calcium 8.3 mg/dL (8.5-10.1); Carbon Dioxide 31.5 meq/L (21.0-32.0); Chloride 102 meq/L (98-107); Glomerular Filtration Rate Greater Than 89 mL/min (>89); Glucose,Random 177 mg/dL (74-106); Potassium 3.4 meq/L (3.5-5.1); Sodium 143 meq/L (136-145)
[2018-04-06 10:24] LABS: Alanine Aminotransferase 47 U/L (10-53)
[2018-04-06 10:26] LABS: Alkaline Phosphatase 79 U/L (45-117); Total Protein 6.6 g/dL (6.4-8.2)
[2018-04-06 11:12] LABS: Lymphocytes 8 % (9-44); Monocytes 2 % (0-8); Myelocytes 1 % (0-0); Platelet Estimate Normal (Normal); Platelet Morphology Normal (Normal); Promyelocyte 1 % (0-0); Tallied Nucleated RBC 3 (0-0)
[2018-04-06] MEDS: traZODone 50 MG Tablet PO SCH (20:25)
[2018-04-06 22:08] VITALS: RESP 18
[2018-04-07] MEDS: Chlorhexidine Gluconate 2% 1 Pack (2 Cloths) TOPICAL SCH (03:42)
[2018-04-07] MEDS: Insulin NovoLIN Regular Correctional Sugar Inj SQ SCH (06:16)
[2018-04-07] MEDS: Azithromycin 250 MG Tablet PO SCH (08:58)
[2018-04-07] MEDS: dilTIAZem CD 240 MG Capsule PO SCH (08:58)
[2018-04-07] MEDS: guaiFENesin 600 MG ER Tablet PO SCH (08:58)
[2018-04-07] MEDS: FLUoxetine 20 MG Capsule PO SCH (08:59)
[2018-04-07] MEDS: Amiodarone 200 MG Tablet PO SCH (08:59)
[2018-04-07] MEDS: MethylPREDNISolone Sod Succinate Inj 40 MG/ML Vial IV.PUSH SCH (08:59)
[2018-04-07] MEDS: Heparin - SQ 10,000 UNITS/ML Vial SQ SCH (08:59)
[2018-04-07] MEDS: Tiotropium Bromide 18 MCG/ACT Inhaler INH SCH (09:00)
[2018-04-07] MEDS: Budesonide-Formoterol 160/4.5 MCG 6 GM Inhaler INH SCH (09:00)
[2018-04-07] MEDS: Pantoprazole Inj 40 MG Vial IV.PUSH SCH (09:00)
[2018-04-07 10:24] VITALS: BP 155/76; TEMP 97.6; O2SAT 96
--- NOTE | 2018-04-07 10:46 | P.PN ---
Subjective Interval history: Follow-up acute hypoxemic and hypercapnic respiratory failure April 07, 2018 -patient seen and examined, denies any chest pain, shortness of breath. States she was up yesterday ambulating without any significant shortness of breath. Looking forward go home today. Physical Exam Vital signs: Vital Signs 04/06/18 11:00 04/06/18 12:00 04/06/18 13:00 Temperature 97.9 F Pulse Rate 88 87 89 Respiratory Rate 20 18 Blood Pressure 152/76 H Pulse Oximetry 93 L 04/06/18 13:06 04/06/18 15:00 04/06/18 15:17 Temperature Pulse Rate 80 80 76 Respiratory Rate 18 Blood Pressure Pulse Oximetry 95 04/06/18 16:00 04/06/18 17:00 04/06/18 17:14 Temperature 98.3 F Pulse Rate 83 80 80 Respiratory Rate 16 Blood Pressure 140/73 Pulse Oximetry 94 L 04/06/18 19:00 04/06/18 20:00 04/06/18 21:00 Temperature 98.4 F Pulse Rate 71 78 69 Respiratory Rate 18 Blood Pressure 156/74 H Pulse Oximetry 97 04/06/18 22:00 04/06/18 23:00 04/07/18 00:00 Temperature 98.3 F Pulse Rate 72 71 70 Respiratory Rate 18 Blood Pressure 144/77 H Pulse Oximetry 96 04/07/18 01:00 04/07/18 02:00 04/07/18 03:00 Temperature Pulse Rate 71 70 73 Respiratory Rate Blood Pressure Pulse Oximetry 04/07/18 04:00 04/07/18 05:00 04/07/18 06:00 Temperature 97.8 F Pulse Rate 71 72 74 Respiratory Rate 18 Blood Pressure 135/88 Pulse Oximetry 95 04/07/18 07:00 04/07/18 08:00 04/07/18 09:46 Temperature 97.6 F Pulse Rate 71 80 70 Respiratory Rate 18 18 Blood Pressure 155/76 H Pulse Oximetry 96 Intake & Output 04/06/18 04/07/18 04/07/18 18:59 06:59 18:59 Intake Total 1820 / 1820 480 / 480 Output Total 850 / 850 1000 / 1000 Balance 970 / 970 -520 / -520 Intake: IV 1100 / 1100 Rocephin Inj 1,000 MG In NS Inj 100 / 100 100 ML @ 200 mls/hr IV.SIG Q24H DIYA Rx#:[id number] Oral 720 / 720 480 / 480 Output: Urine 850 / 850 1000 / 1000 Other: Date of Last Bowel Movement 04/06/18 # Bowel Movements 1 0 Narrative: GENERAL: NAD SKIN: Warm and dry. HEAD: Atraumatic. Normocephalic. EYES: Pupils equal and round. No scleral icterus. No injection or drainage. ENT: No nasal bleeding or discharge. Mucous membranes pink and moist. NECK: Trachea midline. No JVD. CARDIOVASCULAR: Regular rate and rhythm. RESPIRATORY: No accessory muscle use. Clear to auscultation. Breath sounds equal bilaterally. GASTROINTESTINAL: Abdomen soft, non-tender, nondistended. Hepatic and splenic margins not palpable. MUSCULOSKELETAL: Extremities without clubbing, cyanosis, or edema. No obvious deformities. NEUROLOGICAL: Awake and alert. No obvious cranial nerve deficits. Motor grossly within normal limits. Five out of 5 muscle strength in the arms and legs. Normal speech. PSYCHIATRIC: Appropriate mood and affect; insight and judgment normal. - Urinary Catheter Management Indwelling Urethral Catheter Cath placed during this visit: yes Reason for continuing: Hourly intake/output Insertion date: 04/02/18 Insertion time: 13:25 Results - Labs CBC & Chem 7: 04/06/18 09:26 04/06/18 09:26 Laboratory Results - last 24 hr 04/06/18 04/06/18 04/06/18 09:26 13:34 20:35 WBC Differential Manual diff final Seg Neuts % (Manual) 86 H Band Neuts % (Manual) 2 Lymphocytes % (Manual) 8 L Monocytes % (Manual) 2 Myelocytes % (Man) 1 H Promyelocytes % (Man) 1 H Abs Neuts (Manual) 5.5 Nucleated RBCs/100 WBC 3 H Platelet Estimate Normal Platelet Morphology Normal POC Glucose 180 H 176 H 04/07/18 06:03 WBC Differential Seg Neuts % (Manual) Band Neuts % (Manual) Lymphocytes % (Manual) Monocytes % (Manual) Myelocytes % (Man) Promyelocytes % (Man) Abs Neuts (Manual) Nucleated RBCs/100 WBC Platelet Estimate Platelet Morphology POC Glucose 171 H Microbiology 04/03/18 12:53 Blood - Peripheral Aerobic Blood Culture - Preliminary No growth in 3 days 04/03/18 12:53 Blood - Peripheral Anaerobic Blood Culture - Preliminary No growth in 3 days 04/03/18 12:48 Blood - Peripheral Aerobic Blood Culture - Preliminary No growth in 3 days 04/03/18 12:48 Blood - Peripheral Anaerobic Blood Culture - Preliminary No growth in 3 days 04/02/18 13:45 Blood - Peripheral Aerobic Blood Culture - Final Viridans streptococcus grp 04/02/18 13:45 Blood - Peripheral Anaerobic Blood Culture - Preliminary No growth in 4 days 04/02/18 14:00 Blood - Peripheral Aerobic Blood Culture - Preliminary No growth in 4 days 04/02/18 14:00 Blood - Peripheral Anaerobic Blood Culture - Preliminary No growth in 4 days - Procedures none Assessment and Plan - Plan 72-year-old female with COPD exacerbation with acute hypoxemia and hypercapnic respiratory failure- resolved Currently on Solu-Medrol 20 mg IV every 12 hours; switch to p.o. prednisone 10 mg today Continue Spiriva daily, Symbicort, Mucinex and continue with scheduled DuoNeb and as needed as well as azithromycin however changed to p.o. Maintain oxygen saturation above 92% Continue to monitor cultures Pneumococcal and Legionella urinary antigen negatives BiPAP PRN History of paroxysmal atrial fibrillation Continue Cardizem and Amiodarone Patient currently not on any oral anticoagulation Continue ASA Hypertension Continue Cardizem, continue to hold Toprol XL Normochromic normocytic anemia H&H currently at his baseline, transfuse for hemoglobin less than 7 Monitor CBC History of remote pulmonary embolism-per daughter's account GI prophylaxis with Protonix 40 mg daily DVT prophylaxis with sequential compression devices and heparin subcutaneous. PT consult to treat any Discharge Planning: Likely discharge 04/07/18
--- NOTE | 2018-04-07 10:49 | P.DS ---
Date of admission: 04/02/18 15:15 Primary care physician: UNKNOWN Brief History from admission: Elderly female with a past medical history of COPD on 3 liters home oxygen continuously, bronchial asthma being followed by Dr. Magallon in [place], history of hypertension, paroxysmal atrial fibrillation and questionable PE 30 years ago per daughter. She presented to [facility] ED via [facility] for respiratory distress, status post intubation in the field. According to the daughter, the patient reported progressive worsening shortness of breath for the past 3 days associated with coughing and wheezing. She was given a Z-Nilo 1 week ago for a sinus infection by her PMD. She denies any prior history of intubation. On arrival to the ED, she had a fever with temperature of 102.1. She was placed on Diprivan infusion for sedation, and ABG post-intubation showed acute on chronic hypercapnic respiratory acidosis with a pH of 7.35, CO2 68, PaO2 196, bicarbonate 36, saturation of 97%. Chest x-ray showed minimal bibasilar atelectasis. She was noted to have a white count of 11.2 and lactic acid of 1.2. Her CMP is still pending. DS: Summary Hospital Course: While in hospital, patient was treated for: COPD exacerbation with acute hypoxemia and hypercapnic respiratory failure- resolved Treated with Solu-Medrol 20 mg IV every 12 hours; switch to p.o. prednisone 10 mg prior to discharge Treated with Spiriva daily, Symbicort, Mucinex and continue with scheduled DuoNeb and as needed as well as azithromycin Maintain oxygen saturation above 92% Culture remain negative Pneumococcal and Legionella urinary antigen negatives BiPAP PRN History of paroxysmal atrial fibrillation Treated with Cardizem and Amiodarone; patient will resume Toprol-XL on discharge Patient currently not on any oral anticoagulation Continue ASA Hypertension Treated with Cardizem, however Toprol XL held. This will be resumed upon discharge Normochromic normocytic anemia H&H currently at his baseline, transfuse for hemoglobin less than 7 Monitor CBC History of remote pulmonary embolism-per daughter's account GI prophylaxis with Protonix 40 mg daily DVT prophylaxis with sequential compression devices and heparin subcutaneous. - Time Spent with Patient Total time spent providing and/or coordinating discharge services: Greater than 30 minutes - Quality: VTE Deep Vein Thrombosis/Pulmonary Embolism Present on Admission: No Exam Vital signs: Vital Signs 04/06/18 11:00 04/06/18 12:00 04/06/18 13:00 Temperature 97.9 F Pulse Rate 88 87 89 Respiratory Rate 20 18 Blood Pressure 152/76 H Pulse Oximetry 93 L 04/06/18 13:06 04/06/18 15:00 04/06/18 15:17 Temperature Pulse Rate 80 80 76 Respiratory Rate 18 Blood Pressure Pulse Oximetry 95 04/06/18 16:00 04/06/18 17:00 04/06/18 17:14 Temperature 98.3 F Pulse Rate 83 80 80 Respiratory Rate 16 Blood Pressure 140/73 Pulse Oximetry 94 L 04/06/18 19:00 04/06/18 20:00 04/06/18 21:00 Temperature 98.4 F Pulse Rate 71 78 69 Respiratory Rate 18 Blood Pressure 156/74 H Pulse Oximetry 97 04/06/18 22:00 04/06/18 23:00 04/07/18 00:00 Temperature 98.3 F Pulse Rate 72 71 70 Respiratory Rate 18 Blood Pressure 144/77 H Pulse Oximetry 96 04/07/18 01:00 04/07/18 02:00 04/07/18 03:00 Temperature Pulse Rate 71 70 73 Respiratory Rate Blood Pressure Pulse Oximetry 04/07/18 04:00 04/07/18 05:00 04/07/18 06:00 Temperature 97.8 F Pulse Rate 71 72 74 Respiratory Rate 18 Blood Pressure 135/88 Pulse Oximetry 95 04/07/18 07:00 04/07/18 08:00 04/07/18 09:46 Temperature 97.6 F Pulse Rate 71 80 70 Respiratory Rate 18 18 Blood Pressure 155/76 H Pulse Oximetry 96 Intake & Output 04/06/18 04/07/18 04/07/18 18:59 06:59 18:59 Intake Total 1820 / 1820 480 / 480 Output Total 850 / 850 1000 / 1000 Balance 970 / 970 -520 / -520 Intake: IV 1100 / 1100 Rocephin Inj 1,000 MG In NS Inj 100 / 100 100 ML @ 200 mls/hr IV.SIG Q24H DIYA Rx#:[id number] Oral 720 / 720 480 / 480 Output: Urine 850 / 850 1000 / 1000 Other: Date of Last Bowel Movement 04/06/18 # Bowel Movements 1 0 Narrative: GENERAL: NAD SKIN: Warm and dry. HEAD: Atraumatic. Normocephalic. EYES: Pupils equal and round. No scleral icterus. No injection or drainage. ENT: No nasal bleeding or discharge. Mucous membranes pink and moist. NECK: Trachea midline. No JVD. CARDIOVASCULAR: Regular rate and rhythm. RESPIRATORY: No accessory muscle use. Clear to auscultation. Breath sounds equal bilaterally. GASTROINTESTINAL: Abdomen soft, non-tender, nondistended. Hepatic and splenic margins not palpable. MUSCULOSKELETAL: Extremities without clubbing, cyanosis, or edema. No obvious deformities. NEUROLOGICAL: Awake and alert. No obvious cranial nerve deficits. Motor grossly within normal limits. Five out of 5 muscle strength in the arms and legs. Normal speech. PSYCHIATRIC: Appropriate mood and affect; insight and judgment normal. Results Procedures completed during hospitalization: none Labs on day of discharge: Labs from last 24 hours 04/07/18 04/06/18 04/06/18 06:03 20:35 13:34 WBC Differential Seg Neuts % (Manual) Band Neuts % (Manual) Lymphocytes % (Manual) Monocytes % (Manual) Myelocytes % (Man) Promyelocytes % (Man) Abs Neuts (Manual) Nucleated RBCs/100 WBC Platelet Estimate Platelet Morphology POC Glucose 171 H 176 H 180 H 04/06/18 09:26 WBC Differential Manual diff final Seg Neuts % (Manual) 86 H Band Neuts % (Manual) 2 Lymphocytes % (Manual) 8 L Monocytes % (Manual) 2 Myelocytes % (Man) 1 H Promyelocytes % (Man) 1 H Abs Neuts (Manual) 5.5 Nucleated RBCs/100 WBC 3 H Platelet Estimate Normal Platelet Morphology Normal POC Glucose Preliminary micro results at discharge 04/03/18 12:53 Aerobic Blood Culture - Preliminary Blood - Peripheral No growth in 3 days Anaerobic Blood Culture - Preliminary No growth in 3 days 04/03/18 12:48 Aerobic Blood Culture - Preliminary Blood - Peripheral No growth in 3 days Anaerobic Blood Culture - Preliminary No growth in 3 days 04/02/18 13:45 Anaerobic Blood Culture - Preliminary Blood - Peripheral No growth in 4 days 04/02/18 14:00 Aerobic Blood Culture - Preliminary Blood - Peripheral No growth in 4 days Anaerobic Blood Culture - Preliminary No growth in 4 days - Impressions ITS Impressions Chest X-Ray 04/02/18 13:12 CONCLUSION: 1. Minimal bibasilar subsegmental atelectasis. 2. Endotracheal tube 7 cm above the jitendra. Chest CTA 04/02/18 14:53 CONCLUSION: 1. No evidence of pulmonary embolism. 2. Basilar airway disease especially on the right with associated peribronchial opacity and subsegmental pleural-based airspace disease which may be inflammatory. 3. No evidence of suspicious mass or lymphadenopathy. 4. Endotracheal and nasogastric tubes appear to be in good position. Discharge Plan - Discharge Disposition Patient Disposition: /Home Health Service - Discharge Condition Condition: Good - Discharge Order Discharge Orders: Discharge Order (Routine); Ordered 04/07/18 Ordered By: Ralph Cali - Physicians Team Primary Care Provider: UNKNOWN, Attending Provider: Ralph Cali
[2018-04-07 12:05] VITALS: PULSE 80
[2018-04-08] MEDS ORDERED: predniSONE 10 MG Tablet PO SCH (09:00)
== END 2018-04-07 13:40 | disposition home health service (06) ==
LOC: NEPE 13:06 → NEDA 15:15 → EDBD 15:15 → MERGE 15:15 → HIMC 16:30 → HCIS 04-05 10:01
PROVIDERS: ADMIT Hospitalist; ATTEND Hospitalist